=== PATIENT | female | born 1975 | race Two or more races ===

== ENCOUNTER 2016-07-19 18:46 | Inpatient (IN) | payer OTHER ==
[2016-07-19] MEDS: LACTATED RINGERS 1,000 ML IV SCH ×2 (18:15→19:30)
[~2016-07-19 18:46] MED LIST: CITRIC ACID-SODIUM CITRATE 15 ML CUP PO ONE; OXYTOCIN 10 UNIT/ML 1 ML VIAL ONE; PHENYLEPHRINE-0.9% NACL SYG 1 MG/10 ML SYRINGE ONE; PROPOFOL 10 MG/ML 20 ML VIAL IV ONE; SODIUM CHLORIDE 0.9% 1,000 ML BAG ONE; SUCCINYLCHOLINE CHLORIDE 100 MG/5 ML SYR IV ONE; ceFAZolin 1,000 MG VIAL ONE; ePHEDrine 50 MG/ML 1 ML AMP ONE
[2016-07-19 19:16] LABS: Glucose,Whole Blood 92 mg/dL (75-99)
[2016-07-19] MEDS ORDERED: HYDROmorphone 1 MG/ML 1 ML SYRINGE IVP PRN (19:32)
[2016-07-19] MEDS ORDERED: HYDROmorphone 1 MG/ML 1 ML SYRINGE ONE (19:34)
[2016-07-19 19:36] LABS: Anisocytosis Moderate; Basophils % (A) 0 %; CH 27.3; Eosinophils # (A) 0.4 k/uL (0-0.7); Eosinophils % (A) 4 %; HCT 31.9 % (34.0-46.0); HDW 2.82; HGB 10.1 gm/dL (11.4-16.0); Hypochromasia Slight; Luc # (Auto) 0.24; Luc % (Auto) 2; Lymphocytes # (A) 1.6 k/uL (1.0-4.8); Lymphocytes % (A) 16 %; MCHC 31.7 g/dL (31.0-37.0); MCV 85.3 fL (80.0-100.0); Mean Platelet Volume 7.4; Microcytosis Moderate; Monocytes # (A) 0.3 k/uL (0-1.0); Monocytes % (A) 3 %; Neutrophils # (A) 7.4 k/uL (1.3-7.7); Neutrophils % (A) 74 %; RBC 3.75 m/uL (3.80-5.40); RDW 23.9 % (11.5-15.5)
[2016-07-19] MEDS ORDERED: NALOXONE 0.4 MG/ML 1 ML VIAL IV PRN ×2 (19:40→20:35)
[2016-07-19 19:45] LABS: ALT 31 U/L (9-52); AST 23 U/L (14-36); Alkaline Phosphatase 207 U/L (38-126); Anion Gap 6 mmol/L; Blood Urea Nitrogen 10 mg/dL (7-17); Calcium 8.8 mg/dL (8.4-10.2); Carbon Dioxide 21 mmol/L (22-30); Chloride 110 mmol/L (98-107); Glucose 83 mg/dL (74-99); Non-African American GFR(MDRD) >60 (>60 ml/min/1.73 sqM); Potassium 5.2 mmol/L (3.5-5.1); Sodium 137 mmol/L (137-145); Total Bilirubin 0.3 mg/dL (0.2-1.3); Total Protein 5.8 g/dL (6.3-8.2)
--- NOTE | 2016-07-19 19:53 | P.HPOB ---
History of Present Illness H&P Date: 07/19/16 Chief Complaint: Intrauterine 30 weeks: abruption Patient is a 41-year-old at approximately 30 weeks gestation who arrives via EMS having very heavy vaginal bleeding and heart tones that were thought to be in the 70s or below. She was rushed to the operating suite where a section was performed please see that dictation separately. In speaking with the following the surgery it is noted that she has had high blood pressure with this and the bottle of medication they presented since she was taking 600 mg of labetalol every 8 hours. She's been receiving care out of the OB clinic at [facility] I have left a message for a physician to return my call so we might be able to get a little more information from them. Her past medical history is significant only for this hypertension. Past surgical history 3. ALLERGIES according to the none family history of hypertension social history he denies any social history at all no alcohol street drugs or illicit drug use or tobacco use. All information is again gathered from the as the mother at time of dictation was intubated. On physical exam please see records from the section. My ability to give any specifics to her physical exam is quite limited as she was intubated and ready for the when I arrived and she is now in the intensive care unit. Assessment intrauterine at approximately 30 weeks gestation with abruption. Plan emergency section Medications and Allergies Allergies Allergy/AdvReac Type Severity Reaction Status Date / Time No Known Allergies Allergy Verified 07/19/16 19:19 Exam Osteopathic Statement: *. No significant issues noted on an osteopathic structural exam other than those noted in the History and Physical/Consult. - Vital Signs Vital signs: Intake and Output 07/19/16 07/19/16 07/19/16 06:59 14:59 22:59 Other: Weight 82.1 kg Patient Weight 07/20/16 06:59 Weight 82.1 kg Results Result Diagrams: 07/19/16 19:20 07/19/16 19:20 Abnormal Lab Results - Last 24 Hours (Table) 07/19/16 07/19/16 Range/Units 19:20 19:20 RBC 3.75 L (3.80-5.40) m/uL Hgb 10.1 L (11.4-16.0) gm/dL Hct 31.9 L (34.0-46.0) % RDW 23.9 H (11.5-15.5) % Potassium 5.2 H (3.5-5.1) mmol/L Chloride 110 H (98-107) mmol/L Carbon Dioxide 21 L (22-30) mmol/L Alkaline Phosphatase 207 H (38-126) U/L Total Protein 5.8 L (6.3-8.2) g/dL Albumin 3.0 L (3.5-5.0) g/dL
[2016-07-19 19:55] LABS: Magnesium 1.7 mg/dL (1.6-2.3); Phosphorous 3.5 mg/dL (2.5-4.5)
[2016-07-19 20:00] LABS: Prothrombin Time 9.8 sec (9.0-12.0)
[2016-07-19 20:03] LABS: % Iron Saturation 25.6 % (20-50)
--- NOTE | 2016-07-19 20:03 | P.OP ---
Date of Procedure: 07/19/16 Preoperative Diagnosis: Uterine 30 weeks: Vaginal bleeding suspected ruptured Postoperative Diagnosis: Same Procedure(s) Performed: Repeat low transverse section Implants: Anesthesia: TESFAYE Surgeon: Pradeep Pedroza Drill Hand #1: Peg Pastor Estimated Blood Loss (ml): 3,000 Pathology: other (Placenta and fetus) Condition: critical Disposition: ICU Indications for Procedure: Massive blood loss Operative Findings: Female stillborn weight pending active resuscitation done but unsuccessful Description of Procedure: Patient was taken to the operative suite in critical condition having large quantity of blood coming from her vagina. A low transverse section was performed using her old incision line cutting down to layer of the fashion with the same knife fascia was then extended with Haney scissors and incision was extended superiorly and inferiorly with Haney scissors. Blunt dissection through the peritoneum was then made blood was noted in the abdomen incision was made on the uterus extended bluntly and head was atraumatically delivered. Nuchal cord 1 was reduced umbilical cord was clamped cut and the baby was taken immediately by special care nursery. Cord blood gases were collected. Placenta was no longer attached to the uterine wall and to greater than grapefruit sized clots were expressed from the uterus. The remainder of blood and debris was then removed from the uterus and the uterus was closed in 1 layer with 0 Vicryl suture. Due to the criticalness of the patient blood and debris was then suctioned from the posterior cul-de-sac the uterus was reinserted into the abdomen and the fascial layer was closed with 0 Vicryl suture. Skin was then closed with kaylyn and patient was then taken to the intensive care unit.
[2016-07-19 20:04] LABS: Partial Thromboplastin Time 19.8 sec (22.0-30.0)
[2016-07-19] MEDS ORDERED: HYDROmorphone PCA 5 MG/25 ML SYRINGE IV PRN (20:35)
[2016-07-19 22:23] LABS: Appearance,Urine Turbid (Clear); Bilirubin,Urine Negative (Negative); Glucose,Urine (UA) Negative (Negative); Ketones,Urine Trace (Negative); Leukocyte Esterase,Urine Moderate (Negative); Mucus,Urine Occasional /hpf; Nitrite,Urine Negative (Negative); PH, Urine 5.5 (5.0-8.0); Particle Count 54766; Protein,Urine 2+ (Negative); RBC,Urine >182 /hpf (0-5); UA Billing (MACRO vs. MICRO) MICRO; Urobilinogen,Urine <2.0 mg/dL (<2.0); WBC,Urine >182 /hpf (0-5)
[2016-07-19] MEDS ORDERED: Magnesium Replacement Protocol 1 EACH MISC MISCELLANE PRN (22:42)
[2016-07-19] MEDS: MAGNESIUM SULFATE-D5W PMX 1 GM in DEXTROSE/WATER 1 100ML.BAG IVPB SCH (22:57)
[2016-07-19] MEDS: KETOROLAC 30 MG/ML 1 ML VIAL IVP SCH (23:36)
[2016-07-20 00:12] LABS: Glucose,Whole Blood 86 mg/dL (75-99)
[2016-07-20] MEDS: MAGNESIUM SULFATE-D5W PMX 1 GM in DEXTROSE/WATER 1 100ML.BAG IVPB SCH (00:14)
[2016-07-20 00:24] LABS: Anisocytosis Marked; CH 27.6; HCT 29.1 % (34.0-46.0); HDW 2.75; HGB 9.4 gm/dL (11.4-16.0); Hypochromasia Slight; MCH 27.6 pg (25.0-35.0); MCHC 32.1 g/dL (31.0-37.0); MCV 86.1 fL (80.0-100.0); Mean Platelet Volume 7.2; Microcytosis Moderate; RBC 3.39 m/uL (3.80-5.40); RDW 24.2 % (11.5-15.5); WBC 13.9 k/uL (3.8-10.6)
[2016-07-20 00:41] LABS: Anion Gap 6 mmol/L; Blood Urea Nitrogen 11 mg/dL (7-17); Calcium 8.8 mg/dL (8.4-10.2); Carbon Dioxide 20 mmol/L (22-30); Chloride 110 mmol/L (98-107); Glucose 85 mg/dL (74-99); Non-African American GFR(MDRD) >60 (>60 ml/min/1.73 sqM); Phosphorous 4.9 mg/dL (2.5-4.5); Potassium 4.1 mmol/L (3.5-5.1); Sodium 136 mmol/L (137-145)
[2016-07-20] MEDS: DEXTROSE 5% IN WATER 1,000 ML IV SCH ×2 (01:00→08:46)
[2016-07-20 05:07] LABS: Anisocytosis Marked; Basophils % (A) 0 %; CH 27.5; CHCM 31.9; Eosinophils # (A) 0.2 k/uL (0-0.7); Eosinophils % (A) 2 %; HCT 26.2 % (34.0-46.0); HDW 2.75; HGB 8.3 gm/dL (11.4-16.0); Hypochromasia Slight; Luc # (Auto) 0.19; Luc % (Auto) 2; Lymphocytes # (A) 1.7 k/uL (1.0-4.8); Lymphocytes % (A) 18 %; MCH 27.1 pg (25.0-35.0); MCHC 31.5 g/dL (31.0-37.0); MCV 86.1 fL (80.0-100.0); Mean Platelet Volume 7.7; Microcytosis Moderate; Monocytes # (A) 0.4 k/uL (0-1.0); Monocytes % (A) 4 %; Neutrophils # (A) 7.4 k/uL (1.3-7.7); Neutrophils % (A) 74 %; RBC 3.05 m/uL (3.80-5.40); RDW 24.1 % (11.5-15.5); WBC 9.9 k/uL (3.8-10.6); WBC (Perox) 9.79
[2016-07-20 05:18] LABS: Prothrombin Time 9.9 sec (9.0-12.0)
[2016-07-20 05:19] LABS: ALT 34 U/L (9-52); AST 25 U/L (14-36); Alkaline Phosphatase 158 U/L (38-126); Anion Gap 6 mmol/L; Blood Urea Nitrogen 11 mg/dL (7-17); Calcium 8.2 mg/dL (8.4-10.2); Carbon Dioxide 22 mmol/L (22-30); Chloride 105 mmol/L (98-107); Glucose 81 mg/dL (74-99); Magnesium 2.3 mg/dL (1.6-2.3); Non-African American GFR(MDRD) >60 (>60 ml/min/1.73 sqM); Phosphorous 4.4 mg/dL (2.5-4.5); Potassium 3.9 mmol/L (3.5-5.1); Sodium 133 mmol/L (137-145); Total Bilirubin 0.1 mg/dL (0.2-1.3)
[2016-07-20] MEDS ORDERED: Potassium Replacement Protocol 1 EACH MISC MISCELLANE PRN (06:35)
[2016-07-20] MEDS: KETOROLAC 30 MG/ML 1 ML VIAL IVP SCH ×4 (06:49→23:51)
[2016-07-20] MEDS ORDERED: POTASSIUM CHLORIDE ER 20 MEQ TAB.ER PO SCH (07:00)
[2016-07-20 08:44] LABS: Glucose,Whole Blood 85 mg/dL (75-99)
--- NOTE | 2016-07-20 09:31 | P.PNOBGPC ---
Subjective - Subjective Principal diagnosis: Postop day 1 secondary to emergency Interval history: Overall is doing much better. She is still in the intensive care unit and still has a Lomeli catheter placed it should be noted that postoperatively she did have a significant amount of blood in her urine but was felt to be due to a traumatic placement and potentially the rapidity of having to go does go through the surgery. I did not think that I nicked the bladder but that was obviously a concern through the night the urine has cleared and is currently clear yellow and while pushing the bladder no clots or blood is expressed. Should we note any more blood in her urine and will definitely consult urology but at the time of the surgery with her instability it was felt more important to get her out of the surgery and to the intensive care unit for stabilization then to try and find and repair a potential bladder injury. However again during the surgery at no point I feel like we were so close to the bladder that we are risking making it. Again this morning the urine is completely clear there is no blood in the urine at all is pale yellow in color and does not have any blood or clot in it at this time. She is reporting she is very thirsty now and her pain is well-controlled with the DAIRY WORKER. She is rarely push but however and we'll likely discontinue the DAIRY WORKER today and switch her over to oral pills. Onc she is stable from an slag dumper standpoint she will likely be transferred to labor and delivery for continued observation. Due to the fact that she is not from the area and she has multiple family issues it is almost certain that she will try and go home tomorrow if she can. Please see interval documentation from the ICU physician and staff for more information on patient condition. It is however noted that her hemoglobin is 8.3 and will plan to repeat later today to verify stability. Incision does not appear to be bleeding and again there is no blood in her urine. Assessment postop day 1. Plan continue current care with likely transfer to mother-baby later today if she is maintaining her improvement : Objective - Vital Signs Latest vital signs: Vital Signs Temp Pulse Resp BP Pulse Ox 07/20/16 08:30 71 20 165/91 99 07/20/16 08:20 98.3 F 70 20 152/101 99 07/20/16 08:10 70 13 143/86 98 07/20/16 08:00 68 13 119/70 99 07/20/16 07:50 67 13 109/74 98 07/20/16 07:40 73 11 L 102/68 97 07/20/16 07:30 63 8 L 96 07/20/16 07:20 76 17 108/64 99 07/20/16 07:10 68 11 L 128/66 98 07/20/16 07:00 68 8 L 121/76 98 07/20/16 06:50 63 9 L 109/68 96 07/20/16 06:40 63 18 118/66 96 07/20/16 06:30 64 8 L 109/78 96 07/20/16 06:20 69 9 L 134/87 97 07/20/16 06:10 71 20 124/90 98 07/20/16 06:00 74 13 126/75 98 07/20/16 05:50 66 10 L 145/97 99 07/20/16 05:40 71 12 140/88 98 07/20/16 05:30 69 12 135/86 99 07/20/16 05:20 67 8 L 144/83 97 07/20/16 05:10 73 19 118/85 98 07/20/16 05:00 68 11 L 132/82 96 07/20/16 04:50 78 16 133/82 98 07/20/16 04:40 62 8 L 126/75 97 07/20/16 04:30 65 10 L 115/87 97 07/20/16 04:20 68 9 L 119/79 97 07/20/16 04:10 65 9 L 131/74 97 07/20/16 04:00 97.5 F L 66 15 121/74 98 07/20/16 03:50 63 10 L 123/74 97 07/20/16 03:40 69 8 L 117/65 97 07/20/16 03:30 70 8 L 98/61 97 07/20/16 03:20 68 13 119/71 96 07/20/16 03:10 68 9 L 123/75 97 07/20/16 03:00 64 8 L 114/62 97 07/20/16 02:50 64 19 126/81 97 07/20/16 02:40 64 18 115/75 97 07/20/16 02:30 61 17 105/75 97 07/20/16 02:20 77 19 119/78 96 07/20/16 02:10 65 17 115/70 98 07/20/16 02:00 66 18 122/72 97 07/20/16 01:50 64 19 117/82 96 07/20/16 01:40 69 17 120/76 94 L 07/20/16 01:30 62 10 L 120/84 96 07/20/16 01:20 66 16 121/76 94 L 07/20/16 01:10 63 8 L 109/71 97 07/20/16 01:00 62 10 L 127/75 96 07/20/16 00:50 64 10 L 136/84 98 07/20/16 00:40 72 14 131/79 97 07/20/16 00:30 71 28 H 145/78 98 07/20/16 00:20 67 19 139/88 99 07/20/16 00:10 69 17 139/85 98 07/20/16 00:00 98.4 F 68 21 145/87 99 07/19/16 23:50 71 15 140/93 98 07/19/16 23:40 72 26 H 151/95 100 07/19/16 23:32 71 22 156/94 100 07/19/16 23:30 73 14 156/94 100 07/19/16 23:20 77 14 162/94 100 07/19/16 23:10 75 12 139/95 99 07/19/16 23:00 72 13 136/96 100 07/19/16 22:50 75 28 H 170/105 99 07/19/16 22:40 66 10 L 154/107 100 07/19/16 22:30 63 6 L 147/85 98 07/19/16 22:20 69 13 150/88 100 07/19/16 22:10 72 29 H 153/92 99 07/19/16 22:00 72 21 159/97 99 07/19/16 21:50 66 25 H 149/92 100 07/19/16 21:40 64 15 164/101 99 07/19/16 21:30 70 17 160/98 100 07/19/16 21:20 65 11 L 161/101 99 07/19/16 21:10 65 12 164/98 100 07/19/16 21:00 67 15 159/100 100 07/19/16 20:50 67 12 154/92 100 07/19/16 20:42 100 07/19/16 20:40 67 16 144/91 100 07/19/16 20:30 67 14 161/94 99 07/19/16 20:20 73 30 H 144/89 100 07/19/16 20:10 62 16 144/94 100 07/19/16 20:00 97.1 F L 65 14 149/96 100 07/19/16 19:50 68 24 158/97 100 07/19/16 19:40 67 12 154/95 100 07/19/16 19:30 67 13 149/96 100 07/19/16 19:20 67 14 147/91 100 Intake and Output 07/19/16 07/20/16 07/20/16 22:59 06:59 14:59 Intake Total 375 2325 125 Output Total 155 503 100 Balance 220 1822 25 Intake: IV 1000 0.9 1000 Intake, IV Titration 375 1325 125 Amount Dextrose 5% in Water 1, 875 125 000 ml @ 125 mls/hr IV . Q8H [facility] Rx#:[id number] Lactated Ringers 1,000 ml 375 250 @ 125 mls/hr IV .Q8H [facility] Rx#:[id number] Magnesium Sulfate-D5w Pmx 200 1 gm In Dextrose/Water 1 100ml.bag @ 100 mls/hr IVPB Q1H [facility] Rx#: [id number] Output: Urine 155 503 100 Other: Voiding Method Indwelling Catheter Indwelling Catheter Weight 82.9 kg 84.5 kg - Labs Labs: Abnormal Lab Results - Last 24 Hours (Table) 07/19/16 07/19/16 07/19/16 Range/Units 19:20 19:20 19:20 WBC (3.8-10.6) k/uL RBC 3.75 L (3.80-5.40) m/uL Hgb 10.1 L (11.4-16.0) gm/dL Hct 31.9 L (34.0-46.0) % RDW 23.9 H (11.5-15.5) % APTT (22.0-30.0) sec D-Dimer (<0.60) mg/L FEU Sodium (137-145) mmol/L Potassium 5.2 H (3.5-5.1) mmol/L Chloride 110 H (98-107) mmol/L Carbon Dioxide 21 L (22-30) mmol/L Calcium (8.4-10.2) mg/dL Phosphorus (2.5-4.5) mg/dL Total Bilirubin (0.2-1.3) mg/dL Alkaline Phosphatase 207 H (38-126) U/L Total Protein 5.8 L (6.3-8.2) g/dL Albumin 3.0 L (3.5-5.0) g/dL Urine Appearance (Clear) Urine Protein (Negative) Urine Ketones (Negative) Urine Blood (Negative) Ur Leukocyte Esterase (Negative) Urine RBC (0-5) /hpf Urine WBC (0-5) /hpf Urine Mucus (None) /hpf Crossmatch See Detail 07/19/16 07/19/16 07/20/16 Range/Units 19:21 22:08 00:10 WBC 13.9 H (3.8-10.6) k/uL RBC 3.39 L (3.80-5.40) m/uL Hgb 9.4 L (11.4-16.0) gm/dL Hct 29.1 L (34.0-46.0) % RDW 24.2 H (11.5-15.5) % APTT 19.8 L (22.0-30.0) sec D-Dimer 8.35 H (<0.60) mg/L FEU Sodium (137-145) mmol/L Potassium (3.5-5.1) mmol/L Chloride (98-107) mmol/L Carbon Dioxide (22-30) mmol/L Calcium (8.4-10.2) mg/dL Phosphorus (2.5-4.5) mg/dL Total Bilirubin (0.2-1.3) mg/dL Alkaline Phosphatase (38-126) U/L Total Protein (6.3-8.2) g/dL Albumin (3.5-5.0) g/dL Urine Appearance Turbid H (Clear) Urine Protein 2+ H (Negative) Urine Ketones Trace H (Negative) Urine Blood Large H (Negative) Ur Leukocyte Esterase Moderate H (Negative) Urine RBC >182 H (0-5) /hpf Urine WBC >182 H (0-5) /hpf Urine Mucus Occasional H (None) /hpf Crossmatch 07/20/16 07/20/16 07/20/16 Range/Units 00:10 04:42 04:42 WBC (3.8-10.6) k/uL RBC 3.05 L (3.80-5.40) m/uL Hgb 8.3 L (11.4-16.0) gm/dL Hct 26.2 L (34.0-46.0) % RDW 24.1 H (11.5-15.5) % APTT (22.0-30.0) sec D-Dimer (<0.60) mg/L FEU Sodium 136 L 133 L (137-145) mmol/L Potassium (3.5-5.1) mmol/L Chloride 110 H (98-107) mmol/L Carbon Dioxide 20 L (22-30) mmol/L Calcium 8.2 L (8.4-10.2) mg/dL Phosphorus 4.9 H (2.5-4.5) mg/dL Total Bilirubin 0.1 L (0.2-1.3) mg/dL Alkaline Phosphatase 158 H (38-126) U/L Total Protein 5.0 L (6.3-8.2) g/dL Albumin 2.6 L (3.5-5.0) g/dL Urine Appearance (Clear) Urine Protein (Negative) Urine Ketones (Negative) Urine Blood (Negative) Ur Leukocyte Esterase (Negative) Urine RBC (0-5) /hpf Urine WBC (0-5) /hpf Urine Mucus (None) /hpf Crossmatch 07/20/16 Range/Units 04:42 WBC (3.8-10.6) k/uL RBC (3.80-5.40) m/uL Hgb (11.4-16.0) gm/dL Hct (34.0-46.0) % RDW (11.5-15.5) % APTT (22.0-30.0) sec D-Dimer 1.96 H (<0.60) mg/L FEU Sodium (137-145) mmol/L Potassium (3.5-5.1) mmol/L Chloride (98-107) mmol/L Carbon Dioxide (22-30) mmol/L Calcium (8.4-10.2) mg/dL Phosphorus (2.5-4.5) mg/dL Total Bilirubin (0.2-1.3) mg/dL Alkaline Phosphatase (38-126) U/L Total Protein (6.3-8.2) g/dL Albumin (3.5-5.0) g/dL Urine Appearance (Clear) Urine Protein (Negative) Urine Ketones (Negative) Urine Blood (Negative) Ur Leukocyte Esterase (Negative) Urine RBC (0-5) /hpf Urine WBC (0-5) /hpf Urine Mucus (None) /hpf Crossmatch
--- NOTE | 2016-07-20 13:44 | CONS ---
DATE OF CONSULTATION: 07/19/2016 REASON FOR CONSULTATION: Advice regarding anemia and other multiple medical issues requested by Dr. Pedroza. HISTORY OF PRESENT ILLNESS: This 41-year-old woman with a past medical history of hypertension, history of iron deficiency anemia, history of urinary tract infection, treated with antibiotics, history of section, PE, being followed by no primary physician in the outpatient setting was admitted after a for vaginal bleeding and the patient noticed a large quantity of blood from the vagina. The patient underwent repeat low transverse section and the patient has significant massive blood loss. The hemoglobin level is 10.1 and patient is being closely monitored at this time. The D. Dimer elevated at 8.35. There is no history of any fever, rigors or chills. No history of headache, loss of consciousness or seizures. PAST MEDICAL HISTORY: History of hypertension, history of iron deficiency anemia, history of section. Medications prior to admission include home medications are: 1. vitamins one p.o. daily. 2. Iron sulfate 325 mg daily. 3. Trandate 600 mg q.48 hours. ALLERGIES: None. FAMILY HISTORY: History of myocardial infarction. SOCIAL HISTORY: Previous history of smoking. No history of alcohol intake. REVIEW OF SYSTEMS: ENT: No diminished hearing or diminished vision. CARDIOVASCULAR: No angina or palpitations. RESPIRATORY: No cough. No hemoptysis. GI: No nausea or vomiting. : No dysuria. Nervous system: No numbness or weakness. ALLERGY/IMMUNOLOGY: No asthma or hayfever. MUSCULOSKELETAL: As mentioned earlier. HEMATOLOGY/ONCOLOGY: No history of anemia. ENDOCRINE: No history of diabetes or hypothyroidism. CONSTITUTIONAL: As mentioned earlier. DERMATOLOGY: Negative. RHEUMATOLOGY: Negative. PSYCHIATRY: As mentioned earlier. PHYSICAL EXAMINATION: The patient is alert and oriented times three. Pulse 64, blood pressure 136/84, respiratory 10, temperature normal, pulse ox 98% on room air. HEENT: Conjunctivae normal. NECK: No jugular venous distention. CARDIOVASCULAR: S1, S2 muffled. RESPIRATORY: Breath sounds diminished in the bases. No rhonchi, no crackles. ABDOMEN: Soft, nontender, status post section. LEGS: No edema. No swelling. CENTRAL NERVOUS SYSTEM: Higher functions as mentioned earlier. Moves all four limbs. No focal deficits. LYMPHATICS: No lymph nodes palpable in the neck, axillae or groin. SKIN: No ulcer, rash or bleeding. LABS: WBC 10, hemoglobin is 10.1. Otherwise, the d-dimer is 8.35. ASSESSMENT: 1. Status post repeat low transverse section. 2. Anemia secondary from uterine hemorrhage, present on admission. 3. Hypoalbuminemia. 4. Hypertension. 5. Mild hyponatremia. 6. Increased WBC. 7. History of iron deficiency anemia. 8. History of recent urinary tract infection. 9. History of three previous sections. 10. FULL CODE. RECOMMENDATIONS AND DISCUSSION: In this 41-year-old woman who presented with multiple medical issues, we will monitor the patient closely. Continue monitor the hemoglobin closely in ICU. Otherwise, repeat labs. Further recommendations to follow. Recommend to follow up with the primary physician closely in the outpatient setting. Monitor closely with FEDERAL APPELLATE CLERK. The patient had mild hyperkalemia which improved significantly. Further recommendations to follow. Doubt any current urinary tract infection at this time, we will continue to monitor. MTDD
--- NOTE | 2016-07-20 14:31 | P.CNPUL ---
History of Present Illness Consult date: 07/20/16 Requesting physician: Pradeep Pedroza Reason for consult: other (ICU management, patient presented with heavy vaginal bleeding with distress.) Chief complaint: Vaginal bleeding History of present illness: This is a 41-year-old female G6, P5, approximately at 30 weeks gestation, arrival to ER by EMS having symptoms of heavy vaginal bleeding. Patient was also noted to have heart tones to be in the 70s or below. Hence the patient was rushed immediately to the operating suite and she underwent C- section. Patient has been receiving care at OB clinic at [facility]. Patient is known to have history of hypertension, previous 3. Again the patient underwent repeat low transverse , and she was found to have a female stillborn. This was felt to be secondary to placental abruption. Postoperatively, patient was transferred to the intensive care unit , no blood transfusion was required hemoglobin presently today is 8.3. Patient was noted to be hemodynamically stable upon my evaluation, and she was in no form of distress, wondering if she could have regular diet. Hemoglobin prior to all of this was 10.1. Review of Systems 14 point review of systems were obtained, please refer to pertinent positives and negatives in the history of present illness. At the time of my evaluation, patient had no headaches no blurred vision no dizziness, no chest pain, no shortness of breath, no cough no wheezing no nausea no vomiting no abdominal pain no melena no hematemesis. Denied symptoms of urinary tract infection, did dysuria and no frequency no urgency. Past Medical History Past Medical History: Hypertension Additional Past Medical History / Comment(s): iron deficiency anemia; UTI that was treated with antibiotics History of Any Multi-Drug Resistant Organisms: None Reported Past Surgical History: Appendectomy, Section Additional Past Surgical History / Comment(s): 3 previous c sections; appy when 13 Past Anesthesia/Blood Transfusion Reactions: No Reported Reaction Past Psychological History: No Psychological Hx Reported Smoking Status: Former smoker - Past Family History Father Family Medical History: Myocardial Infarction ([place]) Additional Family Medical History / Comment(s): at 51 from [place] Mother Family Medical History: Hypertension Additional Family Medical History / Comment(s): at 69 Medications and Allergies Home Medications Medication Instructions Recorded Confirmed Type Ferrous Sulfate [Feosol] 325 mg PO DAILY 07/19/16 07/19/16 History Labetalol [Trandate] 600 mg PO Q8H 07/19/16 07/19/16 History Pnv,Calcium 72/Iron/Folic Acid 1 tab PO DAILY 07/19/16 07/19/16 History [ Plus Tablet] Allergies Allergy/AdvReac Type Severity Reaction Status Date / Time No Known Allergies Allergy Verified 07/19/16 19:19 Physical Exam Vitals: Vital Signs Temp Pulse Resp BP Pulse Ox 07/20/16 14:00 72 12 117/73 98 07/20/16 13:30 68 11 L 113/78 97 07/20/16 13:00 71 20 142/75 99 07/20/16 12:30 72 13 136/64 99 07/20/16 12:00 73 11 L 138/76 98 07/20/16 11:30 69 10 L 113/47 98 07/20/16 11:21 10 L 07/20/16 11:00 68 10 L 140/79 96 07/20/16 10:30 66 11 L 124/75 97 07/20/16 10:00 69 22 127/78 99 07/20/16 09:50 68 10 L 131/76 97 07/20/16 09:40 68 11 L 132/71 97 07/20/16 09:30 67 14 141/90 98 07/20/16 09:20 75 23 138/93 99 07/20/16 09:10 70 12 146/77 99 07/20/16 09:00 68 13 138/82 98 07/20/16 08:50 71 12 157/75 99 07/20/16 08:40 69 14 153/79 99 07/20/16 08:30 71 20 165/91 99 07/20/16 08:20 98.3 F 70 20 152/101 99 07/20/16 08:10 70 13 143/86 98 07/20/16 08:00 68 13 119/70 99 07/20/16 07:50 67 13 109/74 98 07/20/16 07:40 73 11 L 102/68 97 07/20/16 07:30 63 8 L 96 07/20/16 07:20 76 17 108/64 99 07/20/16 07:10 68 11 L 128/66 98 07/20/16 07:00 68 8 L 121/76 98 07/20/16 06:50 63 9 L 109/68 96 07/20/16 06:40 63 18 118/66 96 07/20/16 06:30 64 8 L 109/78 96 07/20/16 06:20 69 9 L 134/87 97 07/20/16 06:10 71 20 124/90 98 07/20/16 06:00 74 13 126/75 98 07/20/16 05:50 66 10 L 145/97 99 07/20/16 05:40 71 12 140/88 98 07/20/16 05:30 69 12 135/86 99 07/20/16 05:20 67 8 L 144/83 97 07/20/16 05:10 73 19 118/85 98 07/20/16 05:00 68 11 L 132/82 96 07/20/16 04:50 78 16 133/82 98 07/20/16 04:40 62 8 L 126/75 97 07/20/16 04:30 65 10 L 115/87 97 07/20/16 04:20 68 9 L 119/79 97 07/20/16 04:10 65 9 L 131/74 97 07/20/16 04:00 97.5 F L 66 15 121/74 98 07/20/16 03:50 63 10 L 123/74 97 07/20/16 03:40 69 8 L 117/65 97 07/20/16 03:30 70 8 L 98/61 97 07/20/16 03:20 68 13 119/71 96 07/20/16 03:10 68 9 L 123/75 97 07/20/16 03:00 64 8 L 114/62 97 07/20/16 02:50 64 19 126/81 97 07/20/16 02:40 64 18 115/75 97 07/20/16 02:30 61 17 105/75 97 07/20/16 02:20 77 19 119/78 96 07/20/16 02:10 65 17 115/70 98 07/20/16 02:00 66 18 122/72 97 07/20/16 01:50 64 19 117/82 96 07/20/16 01:40 69 17 120/76 94 L 07/20/16 01:30 62 10 L 120/84 96 07/20/16 01:20 66 16 121/76 94 L 07/20/16 01:10 63 8 L 109/71 97 07/20/16 01:00 62 10 L 127/75 96 07/20/16 00:50 64 10 L 136/84 98 07/20/16 00:40 72 14 131/79 97 07/20/16 00:30 71 28 H 145/78 98 07/20/16 00:20 67 19 139/88 99 07/20/16 00:10 69 17 139/85 98 07/20/16 00:00 98.4 F 68 21 145/87 99 07/19/16 23:50 71 15 140/93 98 07/19/16 23:40 72 26 H 151/95 100 07/19/16 23:32 71 22 156/94 100 07/19/16 23:30 73 14 156/94 100 07/19/16 23:20 77 14 162/94 100 07/19/16 23:10 75 12 139/95 99 07/19/16 23:00 72 13 136/96 100 07/19/16 22:50 75 28 H 170/105 99 07/19/16 22:40 66 10 L 154/107 100 07/19/16 22:30 63 6 L 147/85 98 07/19/16 22:20 69 13 150/88 100 07/19/16 22:10 72 29 H 153/92 99 07/19/16 22:00 72 21 159/97 99 07/19/16 21:50 66 25 H 149/92 100 07/19/16 21:40 64 15 164/101 99 07/19/16 21:30 70 17 160/98 100 07/19/16 21:20 65 11 L 161/101 99 07/19/16 21:10 65 12 164/98 100 07/19/16 21:00 67 15 159/100 100 07/19/16 20:50 67 12 154/92 100 07/19/16 20:42 100 07/19/16 20:40 67 16 144/91 100 07/19/16 20:30 67 14 161/94 99 07/19/16 20:20 73 30 H 144/89 100 07/19/16 20:10 62 16 144/94 100 07/19/16 20:00 97.1 F L 65 14 149/96 100 07/19/16 19:50 68 24 158/97 100 07/19/16 19:40 67 12 154/95 100 07/19/16 19:30 67 13 149/96 100 07/19/16 19:20 67 14 147/91 100 Intake and Output 07/19/16 07/20/16 07/20/16 22:59 06:59 14:59 Intake Total 375 2325 1075 Output Total 329 380 4145 Balance 220 1822 -25 Intake: IV 1000 0.9 1000 Intake, IV Titration 375 1325 875 Amount Dextrose 5% in Water 1, 875 875 000 ml @ 125 mls/hr IV . Q8H [facility] Rx#:[id number] Lactated Ringers 1,000 ml 375 250 @ 125 mls/hr IV .Q8H [facility] Rx#:[id number] Magnesium Sulfate-D5w Pmx 200 1 gm In Dextrose/Water 1 100ml.bag @ 100 mls/hr IVPB Q1H [facility] Rx#: [id number] Oral 200 Output: Urine [id number] Other: Voiding Method Indwelling Catheter Indwelling Catheter Indwelling Catheter Weight 82.9 kg 84.5 kg Physical Exam: Revealed a 41-year-old female in no distress. HEENT:[Neck is supple.] [No neck masses.] [No thyromegaly.] [No JVD.] Chest: [Clear throughout, no crackles, no rhonchi, no wheezes.] Cardiac Exam: [Normal S1 and S2, no S3 gallop, no murmur.] Abdomen: [Soft, slightly tender, no rebound, no guarding. Postsurgical. Extremities: [No clubbing, no edema, no cyanosis.] Neurological Exam: [No focal neurologic deficit.] Results - Laboratory Findings CBC and BMP: 07/20/16 04:42 07/20/16 04:42 PT/INR, D-dimer PT 9.9 sec (9.0-12.0) 07/20/16 04:42 INR 1.0 (<1.1) 07/20/16 04:42 D-Dimer 1.96 mg/L FEU (<0.60) H 07/20/16 04:42 Abnormal lab findings: Abnormal Labs 07/19/16 07/19/16 07/19/16 19:20 19:20 19:20 WBC RBC 3.75 L Hgb 10.1 L Hct 31.9 L RDW 23.9 H APTT D-Dimer Sodium Potassium 5.2 H Chloride 110 H Carbon Dioxide 21 L Calcium Phosphorus Total Bilirubin Alkaline Phosphatase 207 H Total Protein 5.8 L Albumin 3.0 L Urine Appearance Urine Protein Urine Ketones Urine Blood Ur Leukocyte Esterase Urine RBC Urine WBC Urine Mucus Crossmatch See Detail 07/19/16 07/19/16 07/20/16 19:21 22:08 00:10 WBC 13.9 H RBC 3.39 L Hgb 9.4 L Hct 29.1 L RDW 24.2 H APTT 19.8 L D-Dimer 8.35 H Sodium Potassium Chloride Carbon Dioxide Calcium Phosphorus Total Bilirubin Alkaline Phosphatase Total Protein Albumin Urine Appearance Turbid H Urine Protein 2+ H Urine Ketones Trace H Urine Blood Large H Ur Leukocyte Esterase Moderate H Urine RBC >182 H Urine WBC >182 H Urine Mucus Occasional H Crossmatch 07/20/16 07/20/16 07/20/16 00:10 04:42 04:42 WBC RBC 3.05 L Hgb 8.3 L Hct 26.2 L RDW 24.1 H APTT D-Dimer Sodium 136 L 133 L Potassium Chloride 110 H Carbon Dioxide 20 L Calcium 8.2 L Phosphorus 4.9 H Total Bilirubin 0.1 L Alkaline Phosphatase 158 H Total Protein 5.0 L Albumin 2.6 L Urine Appearance Urine Protein Urine Ketones Urine Blood Ur Leukocyte Esterase Urine RBC Urine WBC Urine Mucus Crossmatch 07/20/16 04:42 WBC RBC Hgb Hct RDW APTT D-Dimer 1.96 H Sodium Potassium Chloride Carbon Dioxide Calcium Phosphorus Total Bilirubin Alkaline Phosphatase Total Protein Albumin Urine Appearance Urine Protein Urine Ketones Urine Blood Ur Leukocyte Esterase Urine RBC Urine WBC Urine Mucus Crossmatch Assessment and Plan Plan: Impression: 1 acute placental abruption requiring emergency , postoperative day #1. 2 anemia secondary to blood loss related to placental abruption and . 3 history of hypertension during patient was treated with labetalol. Recommendation: Continue present supportive care measures, monitor in the ICU for the next few hours, repeat hemoglobin, consider transferring the patient back to [facility] floor. We'll continue to follow as long as the patient is in the intensive care unit. Time with Patient: Greater than 30
[2016-07-20] MEDS: Acetaminophen-Codeine 300-30mg TAB PO PRN ×2 (16:33→21:41)
--- NOTE | 2016-07-20 18:58 | PN ---
DATE OF SERVICE: 07/20/2016 This 41-year-old woman who was admitted after repeat low transverse section also had anemia. The patient is being monitoring in the ICU. No chest pain. No palpitation. No fever. Hemoglobin 8.3. On exam, alert and oriented pulse 72, blood pressure 117/73, respiration 12, temperature normal. Pulse ox 98% on room air. HEENT: Conjunctivae pale. Oral mucosa moist. NECK: No jugular venous distention. No carotid bruit. CARDIOVASCULAR SYSTEM: S1, S2 muffled. RESPIRATORY SYSTEM: Breath sounds diminished at the bases. No rhonchi. No crackles. ABDOMEN: Soft, status post surgery. LEGS: No edema. No swelling. NERVOUS SYSTEM: No focal deficit. LABS: D-dimer 1.96. Hemoglobin 8.3. Sodium 133. Albumin is 2.6. ASSESSMENT: 1. Status post repeat low transverse section. 2. Anemia secondary to uterine hemorrhage, present on admission. 3. Hypoalbuminemia. 4. Hypertension. 5. Mild hyponatremia. 6. Increased white count. 7. History of iron deficiency anemia. 8. History of recent urinary tract infection. 9. History of 3 previous sections. 10. FULL CODE. RECOMMENDATIONS AND DISCUSSION: I recommend to continue with the current medications, continue with the monitoring, symptomatic treatment. Otherwise, at this time I would recommend oral iron. Continue to monitor. If the hemoglobin is less than 7, transfusion may be arranged. Will follow the patient closely. Thank you, Dr. Pedroza. [facility]
[2016-07-20] MEDS ORDERED: HYDROmorphone 1 MG/ML 1 ML SYRINGE IVP STA (19:07)
[2016-07-21] MEDS: Acetaminophen-Codeine 300-30mg TAB PO PRN ×3 (04:16→23:13)
[2016-07-21] MEDS: KETOROLAC 30 MG/ML 1 ML VIAL IVP SCH (06:30)
[2016-07-21 08:32] LABS: Anisocytosis Moderate; Basophils % (A) 0 %; CH 27.7; CHCM 31.9; Eosinophils # (A) 0.2 k/uL (0-0.7); Eosinophils % (A) 2 %; HCT 31.1 % (34.0-46.0); HDW 2.78; HGB 10.1 gm/dL (11.4-16.0); Hypochromasia Slight; Luc # (Auto) 0.17; Luc % (Auto) 1; Lymphocytes # (A) 1.2 k/uL (1.0-4.8); Lymphocytes % (A) 9 %; MCHC 32.3 g/dL (31.0-37.0); MCV 86.7 fL (80.0-100.0); Mean Platelet Volume 7.1; Microcytosis Moderate; Monocytes # (A) 0.3 k/uL (0-1.0); Monocytes % (A) 3 %; Neutrophils % (A) 85 %; RBC 3.59 m/uL (3.80-5.40); RDW 23.9 % (11.5-15.5); WBC 12.9 k/uL (3.8-10.6); WBC (Perox) 13.07
[2016-07-21 08:44] LABS: INR 0.9 (<1.1); Prothrombin Time 9.3 sec (9.0-12.0)
[2016-07-21 08:53] LABS: Partial Thromboplastin Time 21.1 sec (22.0-30.0)
[2016-07-21 08:54] LABS: Calcium 8.9 mg/dL (8.4-10.2); Magnesium 2.2 mg/dL (1.6-2.3); Phosphorous 4.9 mg/dL (2.5-4.5); Potassium 5.9 mmol/L (3.5-5.1); Total Bilirubin 0.4 mg/dL (0.2-1.3); Total Protein 6.4 g/dL (6.3-8.2)
[2016-07-21] MEDS ORDERED: SODIUM POLYSTYRENE SULFONATE 30 GM/120 ML BOTTLE RECTAL STA (09:59)
[2016-07-21] MEDS ORDERED: INSULIN REGULAR 100 UNIT/ML VIAL IV ONE (10:00)
[2016-07-21] MEDS ORDERED: CALCIUM GLUCONATE 1,000 MG in SODIUM CHLORIDE 0.9% 100 ML IVPB ONE (10:01)
[2016-07-21] MEDS ORDERED: DEXTROSE 50%-WATER 50 ML SYRINGE IVP STA ×2 (10:01)
[2016-07-21] MEDS ORDERED: SODIUM BICARB 8.4% 50 ML SYR (1 MEQ/ML) IV ONE (10:30)
[2016-07-21] MEDS ORDERED: Acetaminophen-Codeine 300-30mg TAB PO STA (11:20)
[2016-07-21 11:33] LABS: Appearance,Urine Cloudy (Clear); Bacteria,Urine Rare /hpf; Bilirubin,Urine Negative (Negative); Calcium Oxalate Crystals,Urine Few /hpf; Glucose,Urine (UA) Negative (Negative); Ketones,Urine Negative (Negative); Leukocyte Esterase,Urine Small (Negative); Mucus,Urine Rare /hpf; Nitrite,Urine Negative (Negative); Particle Count 4817; Protein,Urine Negative (Negative); RBC,Urine 1 /hpf (0-5); Squamous Epithelial Cell,Urine 1 /hpf (0-4); UA Billing (MACRO vs. MICRO) MICRO; Urobilinogen,Urine <2.0 mg/dL (<2.0); WBC,Urine 2 /hpf (0-5)
[2016-07-21] MEDS: oxyCODONE-APAP 7.5-325MG 1 EACH TAB PO PRN ×2 (12:05→15:47)
[2016-07-21] MEDS: SODIUM CHLORIDE 0.9% 1,000 ML IV SCH ×2 (12:49→18:03)
--- NOTE | 2016-07-21 13:29 | CDI ---
In responding to this query, please exercise your independent professional judgment. The [facility] Coding Staff and Clinical Documentation Specialists appreciate your assistance in clarifying documentation, maintaining compliance with coding guidelines, accurately documenting patients condition and capturing severity of illness. The fact that a question is asked does not imply that any particular answer is desired or expected. Communication forms are a method of clarifying documentation and are not made part of the Legal Health Record. Thank you in advance for your clarification. Last Revision, December 2014 [place] [address] [place] [address] Documentation Clarification Form Date: 07/21/2016 1:16:00 PM From: Jordana Pawel Admit Date: 07/19/2016 6:49:00 PM Patient Name: Kaylyn Durham Visit Number: [id number] Discharge Date: Dr. Juanita Saha A diagnosis of anemia lacks specificity to accurately reflect your patients severity of condition and clarification is needed. Patient history/risk factors: Hypertension, Iron deficiency anemia, Cersarean section x3 Clinical Indicators: Intrauterine at 30 weeks, complains of heavy vaginal bleeding. She had an emergency . Hemoglobin: 10.1, 9.4, 8.3 Hematocrit: 31.9, 29.1 26.2 Treatment: Monitor Labs Niferex-150 Forte PO In order to capture the severity of condition, please clarify the type of anemia and etiology if known: Acute blood loss anemia Acute on chronic blood loss anemia Chronic blood loss anemia Iron deficiency anemia Unable to determine Other, please specify Please document in your progress notes order to capture severity of illness and risk of mortality. Include clinical findings that support your diagnosis. FYI: Press F11 to launch patient chart. Place X here if this finding has no clinical significance, is not applicable or if you are not able to provide any additional documentation. MOIZD
[2016-07-21] MEDS ORDERED: SODIUM POLYSTYRENE SULFONATE 15 GM/60 ML BOTTLE PO STA (13:39)
[2016-07-21] MEDS: IRON PS CMPLX/VIT B12/FA 1 EACH CAP PO SCH (13:50)
--- NOTE | 2016-07-21 14:30 | XR ---
EXAMINATION TYPE: XR abdomen 2V DATE OF EXAM: 07/21/2016 COMPARISON: NONE INDICATION: Abdomen pain, dysuria TECHNIQUE: Abdomen examined in the supine and upright views. FINDINGS: There are prominent small bowel loops containing air. These appear dilated. Small amount of colonic b owel but gas is in the ascending colon region. Postsurgical skin clips are at the lower pelvis. Psoas margins are normal. No organomegaly is present. No suspicious air-fluid levels or differential air-fluid levels are present. Free air is not evident. IMPRESSION: 1. Dilated small bowel loops can be postoperative ileus. Early obstruction is not excluded. Follow-up is recommended
--- NOTE | 2016-07-21 15:13 | US ---
EXAMINATION TYPE: US renals and bladder DATE OF EXAM: 07/21/2016 COMPARISON: NONE CLINICAL HISTORY: dysuria, pain, renal failure. Patient post emergency 2 days prior, not producing urine, unable to void. EXAM MEASUREMENTS: Right Kidney: 10.8 x 4.5 x 4.5 cm Left Kidney: 10.9 x 5.6 x 4.6 cm Right Kidney: ff surrounding kidney in Morrisons pouch and surrounding liver Left Kidney: ff left, possible left pleural effusion Bladder: appears wnl FF surrounding uterus and to the lateral left of uterus and lateral right of uterus Bilateral Jets seen: yes Normal Post Void Residual: pt unable to void There is no evidence for hydronephrosis. No nephrolithiasis is seen. No masses are identified. The urinary bladder is anechoic. Bilateral ureteral jets are seen. IMPRESSION: 1. NEGATIVE FOR OBSTRUCTIVE UROPATHY. 2. SMALL VOLUME SIMPLE-APPEARING FREE-FLOWING PERITONEAL FLUID NOTED.
[2016-07-21 15:19] LABS: Calcium 8.7 mg/dL (8.4-10.2); Potassium 4.9 mmol/L (3.5-5.1)
[2016-07-21] MEDS ORDERED: MORPHINE SULFATE 2 MG/ML SYRINGE ONE (16:31)
[2016-07-21] MEDS ORDERED: MORPHINE SULFATE 4 MG/ML SYRINGE IVP PRN (16:47)
--- NOTE | 2016-07-21 17:51 | PN ---
Patient is a very pleasant 41-year-old female admitted for ruptured placenta and a stillborn baby and patient is complaining of abdominal pain, diffuse sharp in nature, radiating all over the abdomen from left to the right. Patient we obtained an ultrasound appears to have some ileus. Patient is on clear liquid diet. Patient abdomen is distended. No rebound or rigidity. Patient will be continued on IV fluids. Patient may need to be n.p.o. if she continues to have this abdominal pain to give her bowels rest because of the ileus, most probably postoperative ileus and patient had a low transverse section. Patient is aneuric at this point of time with worsening creatinine and elevated potassium. Patient was treated with calcium gluconate and Kayexelate for elevated potassium. Patient is hyponatremic as well. I am opting ultrasound of the kidney along with urine random sodium, urine eosinophils and BUN and creatinine ratio is consistent actually with post renal causes. Does not appear to have prerenal azotemia. Anyways, we will continue with IV fluids. Patient remains anuric at this point of time. Ultrasound of the kidney will be obtained as well. REVIEW OF SYSTEMS: CONSTITUTIONAL: No fever, no malaise, no fatigue. HEENT: No recent visual problems or hearing problems. Denied any sore throat. CARDIOVASCULAR: No chest pain, orthopnea, PND, no palpitations, no syncope. PULMONARY: No shortness of breath, no cough, no hemoptysis. GASTROINTESTINAL: as described in HPI. NEUROLOGICAL: No headaches, no weakness, no numbness. HEMATOLOGICAL: Denies any bleeding or petechiae. GENITOURINARY: Denies any burning micturition, frequency, or urgency. MUSCULOSKELETAL/RHEUMATOLOGICAL: Denies any joint pain, swelling, or any muscle pain. ENDOCRINE: Denies any polyuria or polydipsia. The rest of the 14 point review of systems is negative. Medications were reviewed. Patient started in spite of her years, patient was started on narcotics for pain to avoiding any kind of NSAIDS at this point of time. PHYSICAL EXAMINATION: Temperature 98.5, pulse of 72, respiratory rate of 18, blood pressure 170/73, saturating at 99%. GENERAL: The patient is alert and oriented x3, not in any acute distress. Well developed, well nourished. HEENT: Pupils are round and equally reacting to light. EOMI. No scleral icterus. No conjunctival pallor. Normocephalic, atraumatic. No pharyngeal erythema. No thyromegaly. CARDIOVASCULAR: S1 and S2 present. No murmurs, rubs, or gallops. PULMONARY: Chest is clear to auscultation, no wheezing or crackles. ABDOMEN: Patient has sluggish bowel sounds. Patient does have bowel sounds. Patient's abdomen is distended, tympanic without any rebound or rigidity. MUSCULOSKELETAL: No joint swelling or deformity. EXTREMITIES: No cyanosis, clubbing, or pedal edema. NEUROLOGICAL: Gross neurological examination did not reveal any focal deficits. SKIN: No rashes. LABORATORY DATA: CBC, CMP are abnormal for elevated WBC count of 12,900, sodium of 131, potassium of 5.9, bicarbonate of 20, creatinine is 1.63. Her creatinine yesterday was 0.70. ASSESSMENT AND PLAN: 1. Acute renal failure possible renal versus post renal causes. Further evaluation as mentioned in the interval history. 2. ( ) status post section, that aspect is being managed by [facility] services. 3. Leukocytosis secondary to reactive response post section. 4. Possible postoperative ileus. Management as mentioned above. 5. Hyponatremia can be hypovolemic hyponatremia, will further evaluate with a TSH and starting with TSH. If it does not resolve with IV fluids, patient will need further evaluation with urine serum osmolarity as urine random sodium is being obtained at this point of time. 6. Can be syndrome of inappropriate antidiuretic hormone from pain as well. 7. Hypertension post . At this point of time, patient's blood pressure is not very high. Patient will need good renal perfusion because of which antihypertensives will be discontinued. We will discontinue all p.r.n. antihypertensives as well. 8. Hyperkalemia secondary to acute renal failure expected to improve with above-mentioned measures.
--- NOTE | 2016-07-21 17:53 | FL ---
History bladder laceration. The initial image shows Lomeli catheter in urinary bladder. There is a small amount of contrast in the bladder. There are skin kaylyn. The contrast was instilled into the urinary bladder. This was Cystografin 225 mL. There is contrast o pacification of the urinary bladder that has fairly normal contour. There is abnormal contrast extrav asation into the pelvis on the left side. The remainder of exam is unremarkable. CONCLUSION: The exam shows bladder laceration or leak with contrast extravasation into the pelvis on the left debra e.
--- NOTE | 2016-07-21 19:28 | P.GSCN ---
History of Present Illness Consult date: 07/21/16 Reason for Consult: Bladder laceration Requesting physician: Pradeep Pedroza History of present illness: The patient is a 41-year-old white female, 30 weeks , brought to [facility] via EMS on 07/19/2016 with heavy vaginal bleeding and low heart tones. She underwent emergency section. Postoperatively, she was noted to have gross hematuria but this cleared. The Lomeli catheter was out today, and the patient developed hematuria and difficulty voiding. A cystogram was obtained, revealing contrast extravasation on the left side. I'm consulted for this reason. A Lomeli catheter is currently in place. The patient has an unremarkable urologic history. She has been treated for UTIs throughout this . However, she denies any prior history of UTIs or urolithiasis. Review of Systems - Genitourinary Genitourinary: Reports dysuria, Reports hematuria Menstruation: Reports as per HPI Past Medical History Past Medical History: Hypertension Additional Past Medical History / Comment(s): iron deficiency anemia; UTI that was treated with antibiotics History of Any Multi-Drug Resistant Organisms: None Reported Past Surgical History: Appendectomy, Section Additional Past Surgical History / Comment(s): 3 previous c sections; appy when 13 Past Anesthesia/Blood Transfusion Reactions: No Reported Reaction Past Psychological History: No Psychological Hx Reported Smoking Status: Former smoker - Past Family History Father Family Medical History: Myocardial Infarction (CT) Additional Family Medical History / Comment(s): at [address] Mother Family Medical History: Hypertension Additional Family Medical History / Comment(s): at 69 Medications and Allergies Home Medications Medication Instructions Recorded Confirmed Type Ferrous Sulfate [Feosol] 325 mg PO DAILY 07/19/16 07/19/16 History Labetalol [Trandate] 600 mg PO Q8H 07/19/16 07/19/16 History Pnv,Calcium 72/Iron/Folic Acid 1 tab PO DAILY 07/19/16 07/19/16 History [ Plus Tablet] Allergies Allergy/AdvReac Type Severity Reaction Status Date / Time No Known Allergies Allergy Verified 07/19/16 19:19 Surgical - Exam Vital Signs Temp Pulse Resp BP Pulse Ox 98.4 F 71 16 122/78 97 07/19/16 16:00 07/19/16 16:00 07/19/16 16:00 07/19/16 16:00 07/19/16 16:00 - General well developed, well nourished, moderate distress - Respiratory normal respiratory effort - Abdomen Soft, tender to palpation, no rebound. The Pfannenstiel incision is clean. Results - Labs 07/21/16 08:05 07/21/16 14:58 Abnormal Lab Results - Last 24 Hours (Table) 07/19/16 07/21/16 07/21/16 Range/Units 19:20 08:05 08:05 WBC 12.9 H (3.8-10.6) k/uL RBC 3.59 L (3.80-5.40) m/uL Hgb 10.1 L (11.4-16.0) gm/dL Hct 31.1 L (34.0-46.0) % RDW 23.9 H (11.5-15.5) % Neutrophils # 11.0 H (1.3-7.7) k/uL APTT 21.1 L (22.0-30.0) sec Sodium (137-145) mmol/L Potassium (3.5-5.1) mmol/L Carbon Dioxide (22-30) mmol/L Creatinine (0.52-1.04) mg/dL Glucose (74-99) mg/dL Phosphorus (2.5-4.5) mg/dL Alkaline Phosphatase (38-126) U/L Albumin (3.5-5.0) g/dL Urine Appearance (Clear) Urine Blood (Negative) Ur Leukocyte Esterase (Negative) Calcium Oxalate Crystal (None) /hpf Urine Bacteria (None) /hpf Urine Mucus (None) /hpf Ur Random Sodium (30-90) mmol/L Crossmatch See Detail 07/21/16 07/21/16 07/21/16 Range/Units 08:05 10:00 10:00 WBC (3.8-10.6) k/uL RBC (3.80-5.40) m/uL Hgb (11.4-16.0) gm/dL Hct (34.0-46.0) % RDW (11.5-15.5) % Neutrophils # (1.3-7.7) k/uL APTT (22.0-30.0) sec Sodium 131 L (137-145) mmol/L Potassium 5.9 H (3.5-5.1) mmol/L Carbon Dioxide 20 L (22-30) mmol/L Creatinine 1.63 H (0.52-1.04) mg/dL Glucose (74-99) mg/dL Phosphorus 4.9 H (2.5-4.5) mg/dL Alkaline Phosphatase 182 H (38-126) U/L Albumin 3.4 L (3.5-5.0) g/dL Urine Appearance Cloudy H (Clear) Urine Blood Moderate H (Negative) Ur Leukocyte Esterase Small H (Negative) Calcium Oxalate Crystal Few H (None) /hpf Urine Bacteria Rare H (None) /hpf Urine Mucus Rare H (None) /hpf Ur Random Sodium 28 L (30-90) mmol/L Crossmatch 07/21/16 Range/Units 14:58 WBC (3.8-10.6) k/uL RBC (3.80-5.40) m/uL Hgb (11.4-16.0) gm/dL Hct (34.0-46.0) % RDW (11.5-15.5) % Neutrophils # (1.3-7.7) k/uL APTT (22.0-30.0) sec Sodium 129 L (137-145) mmol/L Potassium (3.5-5.1) mmol/L Carbon Dioxide 19 L (22-30) mmol/L Creatinine 2.23 H (0.52-1.04) mg/dL Glucose 107 H (74-99) mg/dL Phosphorus (2.5-4.5) mg/dL Alkaline Phosphatase (38-126) U/L Albumin (3.5-5.0) g/dL Urine Appearance (Clear) Urine Blood (Negative) Ur Leukocyte Esterase (Negative) Calcium Oxalate Crystal (None) /hpf Urine Bacteria (None) /hpf Urine Mucus (None) /hpf Ur Random Sodium (30-90) mmol/L Crossmatch Microbiology - Last 24 Hours (Table) 07/21/16 10:00 Urine Culture - Preliminary Urine,Catheterized 07/19/16 22:08 Urine Culture - Final Urine,Catheterized Diabetes panel 07/21/16 07/21/16 Range/Units 08:05 14:58 Sodium 131 L 129 L (137-145) mmol/L Potassium 5.9 H 4.9 (3.5-5.1) mmol/L Chloride 103 100 (98-107) mmol/L Carbon Dioxide 20 L 19 L (22-30) mmol/L BUN 14 16 (7-17) mg/dL Creatinine 1.63 H 2.23 H (0.52-1.04) mg/dL Glucose 99 107 H (74-99) mg/dL Calcium 8.9 8.7 (8.4-10.2) mg/dL AST 33 (14-36) U/L ALT 42 (9-52) U/L Alkaline Phosphatase 182 H (38-126) U/L Total Protein 6.4 (6.3-8.2) g/dL Albumin 3.4 L (3.5-5.0) g/dL Calcium panel 07/21/16 07/21/16 Range/Units 08:05 14:58 Calcium 8.9 8.7 (8.4-10.2) mg/dL Phosphorus 4.9 H (2.5-4.5) mg/dL Albumin 3.4 L (3.5-5.0) g/dL Pituitary panel 07/21/16 07/21/16 Range/Units 08:05 14:58 Sodium 131 L 129 L (137-145) mmol/L Potassium 5.9 H 4.9 (3.5-5.1) mmol/L Chloride 103 100 (98-107) mmol/L Carbon Dioxide 20 L 19 L (22-30) mmol/L BUN 14 16 (7-17) mg/dL Creatinine 1.63 H 2.23 H (0.52-1.04) mg/dL Glucose 99 107 H (74-99) mg/dL Calcium 8.9 8.7 (8.4-10.2) mg/dL Adrenal panel 07/21/16 07/21/16 Range/Units 08:05 14:58 Sodium 131 L 129 L (137-145) mmol/L Potassium 5.9 H 4.9 (3.5-5.1) mmol/L Chloride 103 100 (98-107) mmol/L Carbon Dioxide 20 L 19 L (22-30) mmol/L BUN 14 16 (7-17) mg/dL Creatinine 1.63 H 2.23 H (0.52-1.04) mg/dL Glucose 99 107 H (74-99) mg/dL Calcium 8.9 8.7 (8.4-10.2) mg/dL Total Bilirubin 0.4 (0.2-1.3) mg/dL AST 33 (14-36) U/L ALT 42 (9-52) U/L Alkaline Phosphatase 182 H (38-126) U/L Total Protein 6.4 (6.3-8.2) g/dL Albumin 3.4 L (3.5-5.0) g/dL Assessment and Plan (1) Bladder laceration as postoperative complication Status: Acute Plan: I reviewed the cystogram, which reveals extravasation of contrast to the left of the midline. I had a lengthy discussion with the patient and her . I explained that the findings are consistent with a bladder laceration, and I have recommended that this be surgically repaired. The rationale for this was discussed, and the procedure was reviewed in detail. Potential risks include anesthesia, bleeding, infection, bowel injury, persistent leak, and vesicovaginal fistula. I explained the need for a Lomeli catheter postoperatively. I intend to pass a ureteral catheter up each ureter to exclude ureteral injury, though this is not suspected. I intend to perform this procedure tomorrow. All questions were answered. Time with Patient: Greater than 30
[2016-07-21] MEDS ORDERED: BUTORPHANOL 1 MG/ML 1 ML VIAL IV PRN (19:38)
--- NOTE | 2016-07-21 19:46 | P.PN ---
Progress Note - Text Patient seen and evaluated on several occasions today. Following removal of her Lomeli catheter yesterday she began having significant abdominal pain and decreasing urine output. Due to this when I was notified this morning I did try and order an merchant ultrasound to try and verify patency of the bladder. However due to her uncontrolled blood pressures she was held from having the ultrasound until they were able to better manage her medication. Early this afternoon she did have an ultrasound which revealed fluid in the abdomen and pelvis. I did speak with the urologist myself and we obtained a cystogram revealing extravasation from what appears to be a small hole in the bladder. In speaking with her tonight the plan is to have an exploratory surgery tomorrow to repair the laceration. Risks and benefits of the surgery were discussed with the patient in detail by Dr. Alvarez. Her vital signs continued to show significant hypertension. She is complaining of worsening of pain this evening and: Reinsertion of Lomeli catheter there is now hematuria again. Yesterday the decision to remove the Lomeli catheter was made by my partner. At that time there was no gross hematuria urine was clear yellow the patient was actually feeling very well she had been up ambulating and was voicing no concerns or complaints at that time. I had a lengthy discussion with both she and her there concerned about obviously the laceration and its ability to repair there were concerned about trying to figure out why this happened during the surgery did again reiterate due to the emergency nature of the section and the speed with which we're trying to do the surgery on occasion you can have bladder lacerations I also did remind her that she had had 3 previous sections and this certainly could play a role in her having a laceration. The more importantly we discussed that had this been a scheduled section were she was not in a critical condition and our concerns over her blood pressure and our concern that she may not make it out of the surgery precluded us from doing any further examination for possible laceration at that time. We'll plan to assist Dr. Landaverde with the surgery tomorrow. She is requesting an increase in pain medication will switch her over to Stadol 1 mg IV every 2 for severe breakthrough pain. She'll be made nothing by mouth after midnight tonight with expectation that late morning early in the afternoon she will undergo the surgery. Please see Dr. Alvarez's dicauscultation dictation regarding medical treatment of her blood pressure and hyperkalemia and suspected acute renal failure Weisser incision is clean dry and intact.
[2016-07-21] MEDS ORDERED: ceFAZolin 1 GM in SODIUM CHLORIDE 0.9% 100 ML IVPB SCH (20:00)
[2016-07-21] MEDS ORDERED: ceFAZolin 1,000 MG in DEXTROSE/WATER 1 50ML.BAG IVPB SCH (20:00)
[2016-07-21] MEDS ORDERED: LABETALOL 100 MG TAB PO PRN (23:26)
[2016-07-21 23:42] LABS: Anisocytosis Marked; CH 27.9; HCT 32.9 % (34.0-46.0); HDW 2.76; HGB 10.5 gm/dL (11.4-16.0); Hypochromasia Slight; Immature Gran Flag Marked; MCH 27.8 pg (25.0-35.0); MCV 86.9 fL (80.0-100.0); Mean Platelet Volume 6.7; Microcytosis Moderate; RBC 3.79 m/uL (3.80-5.40); RDW 24.1 % (11.5-15.5); WBC 8.3 k/uL (3.8-10.6); WBC (Perox) 8.92
[2016-07-22] LABS: ABG HCO3 17 mmol/L (21-25); ABG PCO2 22 mmHg (35-45); ABG PH 7.51 (7.35-7.45); ABG PO2 88 mmHg (83-108); ABG TCO2 18 mmol/L (19-24)
[2016-07-22 00:01] LABS: ABG Base Excess -5.7 mmol/L
[2016-07-22 00:05] LABS: Calcium 8.4 mg/dL (8.4-10.2); Potassium 4.4 mmol/L (3.5-5.1); Total Bilirubin 0.3 mg/dL (0.2-1.3); Total Protein 5.8 g/dL (6.3-8.2)
[2016-07-22 00:48] LABS: Add Differential Manual Differential
[2016-07-22 00:57] LABS: Nucleated Red Blood Cells 0 /100 WBC (0-0); Total Cells Counted 200
[2016-07-22 00:58] LABS: Polychromasia Present
[2016-07-22 00:59] LABS: Toxic Vacuolation Present
[2016-07-22] MEDS: HYDROmorphone 1 MG/ML 1 ML SYRINGE IVP PRN ×5 (01:40→22:06)
--- NOTE | 2016-07-22 02:24 | CT ---
Exam: CT ABDOMEN + PELVIS without Contrast History: Possible postoperative ileus. Unable to urinate. Rigid and painful distended abdomen. Comparison: None provided. Technique: Continuous axial images of the abdomen and pelvis are obtained without intravenous contrast. Coronal and sagittal reformatting was provided. Findings: Detailed evaluation is limited by a lack of intravenous and/or enteric contrast. Further limited by beam hardening artifact from overlying upper extremities. Trace bilateral pleural effusions with minimal bibasilar atelectasis. There are scattered pockets of fluid throughout the abdomen and pelvis. Cursory measurements reveal predominantly simple fluid attenuation in these pockets of fluid. It is nonspecific. It may be related to recent surgery. Presumably, surgery was a given subcutaneous stranding/edema and soft tissue emphysema with surgical kaylyn in the pelvis. There is also an enlarged uterus. A portion of the free fluid at the pelvic floor is somewhat confluent. No definite abscess formation at this time though sensitivity is limited by lack of intravenous contrast. Multiple extraluminal gas bubbles are seen throughout the abdomen and pelvis. The vast majority of these are in the lower abdomen/pelvis. These are probably post operative in nature. The possibility of a bowel perforation is considered unlikely, but not ruled out. There is a large amount of gas throughout the colon. Segments of the ascending and transverse colon are prominent, measuring almost 7.5 cm in caliber. However, these are not frankly dilated by CT size criteria. It probably represents a postoperative ileus. There is transition to decompressed caliber at the level of the descending colon. The unenhanced liver, spleen, adrenal glands, right kidney, and pancreas show no substantial abnormality. Questionable punctate nonobstructing stone at the lower pole of the left kidney suggestion of layering sludge in the gallbladder. Appendix not seen with certainty. Urinary bladder is decompressed by Lomeli catheter and not well evaluated. The aorta is not dilated. No bulky lymphadenopathy though sensitivity is limited by lack of intravenous contrast. No aggressive appearing osseous process. Impression: 1. Moderate amount of free fluid and mild amount of free gas as discussed. Presumably, these are postoperative changes as discussed above. 2. Probable postoperative colonic ileus. CTDI vol = 21.70 mGy DLP = 1146.20 mGycm One or more of the following dose reduction techniques were used: automated exposure control, adjustment of the mA and/or kV according to patient size, use of iterative reconstruction technique.
--- NOTE | 2016-07-22 02:35 | P.PN ---
Progress Note - Text was called to evaluate the patient earlier this morning due to intractable pain. Over the last few hours patient's pain level has significantly increased and in a sitting position and the pain was virtually unbearable. Abdomen on evaluation is now firm she does have bowel sounds but appears to be distended. Discussion on whether this was fluid from her bladder or an ileus was made and due to concerns over ileus a CAT scan was ordered by her hospitalist physician. CT reveals suspected colonic ileus. Obviously making matters worsened the situation she is on narcotics for pain relief which are the only thing that seemed to be controlling her pain better certainly going to make the ileus worse. Will consult Dr. Lance for surgical evaluation possible medication use or even potentially rectal tube should this prove necessary. At this time she is not throwing up she has minimal nausea and after her last dose of IV pain medicine is much more comfortable. With her laying at a low angle supine position her breathing is much better and her pain is much better. I did speak with both she and her and they seemed to understand what her current pain situation is but unfortunately until we're able to take her to surgery to repair at the bladder and/or have her start passing flatus and don't think that her pain is gotten dramatically improved but as I stated earlier will have surgery consult and see if they can offer any other recommendations.
[2016-07-22] MEDS: PIPERACILLIN-TAZOBACTAM 3.375 GM in DEXTROSE/WATER 1 50ML.BAG IVPB SCH ×5 (03:10→23:48)
[2016-07-22] MEDS ORDERED: ACETAMINOPHEN IV (For NPO) 1,000 MG in EMPTY BAG 1 BAG IVPB PRN (03:16)
[2016-07-22] MEDS: SODIUM CHLORIDE 0.9% 1,000 ML IV SCH ×3 (04:05→18:21)
[2016-07-22 05:34] LABS: Anisocytosis Marked; CH 28.3; CHCM 33.7; HCT 28.6 % (34.0-46.0); HDW 2.91; HGB 9.4 gm/dL (11.4-16.0); Immature Gran Flag Slight; MCH 27.7 pg (25.0-35.0); MCV 83.9 fL (80.0-100.0); Mean Platelet Volume 7.4; Microcytosis Moderate; RBC 3.41 m/uL (3.80-5.40); WBC 12.8 k/uL (3.8-10.6); WBC (Perox) 13.67
[2016-07-22 05:50] LABS: ALT 31 U/L (9-52); AST 21 U/L (14-36); Alkaline Phosphatase 128 U/L (38-126); Anion Gap 8 mmol/L; Blood Urea Nitrogen 13 mg/dL (7-17); Calcium 7.6 mg/dL (8.4-10.2); Carbon Dioxide 20 mmol/L (22-30); Chloride 103 mmol/L (98-107); Glucose 99 mg/dL (74-99); Magnesium 1.7 mg/dL (1.6-2.3); Non-African American GFR(MDRD) 50 (>60 ml/min/1.73 sqM); Phosphorous 5.2 mg/dL (2.5-4.5); Potassium 4.8 mmol/L (3.5-5.1); Sodium 131 mmol/L (137-145); Total Bilirubin 0.6 mg/dL (0.2-1.3); Total Protein 5.4 g/dL (6.3-8.2)
[2016-07-22 05:51] LABS: Partial Thromboplastin Time 22.8 sec (22.0-30.0); Prothrombin Time 9.8 sec (9.0-12.0)
[2016-07-22 07:26] LABS: Add Differential Manual Differential
[2016-07-22 07:32] LABS: Band Neutrophils % 47.5 %; Metamyelocytes % 0.5 %; Nucleated Red Blood Cells 0 /100 WBC (0-0); Total Cells Counted 200
[2016-07-22 07:33] LABS: Polychromasia Present
[2016-07-22 07:35] LABS: Toxic Vacuolation Present
[2016-07-22] MEDS ORDERED: LACTATED RINGERS 1,000 ML IV ONE ×2 (11:50→13:48)
[2016-07-22] MEDS ORDERED: LIDOCAINE 1% 20 ML VIAL (10MG/ML) FOR IV START INTRADERMA ONE (11:51)
[2016-07-22] MEDS ORDERED: fentaNYL (PF) 50 MCG/ML 2 ML AMP IV ONE ×2 (11:56→12:00)
[2016-07-22] MEDS ORDERED: ONDANSETRON 4 MG/2 ML VIAL IVP ONE (12:13)
[2016-07-22] MEDS ORDERED: LIDOCAINE 1% INJ 10MG/ML (20 ML MDV) ONE (12:30)
[2016-07-22] MEDS ORDERED: fentaNYL (PF) 50 MCG/ML 2 ML AMP ONE (12:30)
[2016-07-22] MEDS ORDERED: PHENYLEPHRINE-0.9% NACL SYG 1 MG/10 ML SYRINGE ONE (12:30)
[2016-07-22] MEDS ORDERED: GLYCOPYRROLATE 0.2 MG/ML 2 ML VIAL ONE (12:30)
[2016-07-22] MEDS ORDERED: ROCURONIUM BROMIDE 10 MG/ML 10 ML VIAL IV ONE (12:30)
[2016-07-22] MEDS ORDERED: HYDROmorphone (PF) 1 MG/ML ONE (12:30)
[2016-07-22] MEDS ORDERED: ePHEDrine 50 MG/ML 1 ML AMP ONE (12:30)
[2016-07-22] MEDS ORDERED: PROPOFOL 10 MG/ML 20 ML VIAL IV ONE (12:30)
[2016-07-22] MEDS ORDERED: SUCCINYLCHOLINE CHLORIDE 100 MG/5 ML SYR IV ONE (12:30)
[2016-07-22] MEDS ORDERED: NEOSTIGMINE 1 MG/ML 10 ML VIAL ONE (12:30)
[2016-07-22] MEDS ORDERED: SODIUM CHLORIDE 0.9% 100 ML with ceFAZolin 1,000 MG IV ONE ×2 (12:50)
[2016-07-22] MEDS ORDERED: METHYLENE BLUE 15 MG in DEXTROSE 5% IN WATER 500 ML IRRIGATION ONE ×2 (13:01)
[2016-07-22] MEDS: KETOROLAC 30 MG/ML 1 ML VIAL IVP SCH (13:20)
[2016-07-22] MEDS: HYDROmorphone 1 MG/ML 1 ML SYRINGE IVP ONE ×2 (13:20→13:30)
--- NOTE | 2016-07-22 16:15 | P.OP ---
Date of Procedure: 07/22/16 Preoperative Diagnosis: Bladder Laceration Postoperative Diagnosis: Same Procedure(s) Performed: Exploratory Laparotomy, Repair of Bladder Laceration Implants: Anesthesia: TESFAYE Surgeon: Ruben Alvarez Field Contact Person #1: Pradeep Pedroza Estimated Blood Loss (ml): 50 IV fluids (ml): 1,300 Pathology: none sent Condition: stable Disposition: PACU Indications for Procedure: The patient is a 41-year-old woman who underwent an emergent section on 07/19/2016 for hemorrhage. She experienced pain and difficulty voiding upon removal of her Lomeli catheter yesterday, and a cystogram showed evidence of contrast extravasation consistent with a bladder laceration. She now comes for surgical repair. Operative Findings: Anterior bladder wall laceration Description of Procedure: The patient was taken to the operating room and placed in the supine position. The abdomen was prepped and draped sterilely. The surgical kaylyn were removed , and her Pfannenstiel incision was opened. Fascial sutures were removed. Fluid was drained from the abdomen. The post-gravid uterus was significantly enlarged. Inferiorly, blunt dissection was performed along the underside of the pubis to develop the space of Retzius. As the bladder was exposed, the bladder laceration was identified on the anterior bladder wall. It measured approximately 5-6 cm in length. Through this opening, the interior of the bladder was carefully examined, and no other abnormalities were identified. Blunt digital dissection was performed on the lateral aspects of the exterior of bladder to mobilize the bladder away from the pelvic sidewall and thus minimize any tension on the bladder closure. It was decided that it would be more optimal to close the bladder longitudinally rather than transversely. Some redundant detrusor muscle was noted at the inferior aspect of the laceration. The laceration was closed in 2 layers. The mucosa was closed using 3-0 Vicryl suture in a running fashion, and the muscle was closed using 2- 0 Vicryl suture in a running fashion. The flap of detrusor muscle was then advanced over the incision, and was secured in place using Vicryl suture in a running fashion. This covered the majority of the incision, and the upper aspect of the incision was covered by advancing some nearby connective tissue over the incision and securing it in place using Vicryl suture. 150 mL of methylene blue was then instilled into the bladder, and there was no evidence of extravasation from the repaired laceration or elsewhere. The peritoneal cavity was thoroughly irrigated using warm normal saline. This was done until the return of irrigant was clear. 0 Vicryl suture was used to close the peritoneum in a running fashion. A Chris-Hager drain was left within the space of Retzius, overlying the bladder. This was brought out through a separate stab incision to the left of the midline, inferior to the surgical incision. The drain was sutured to the skin using nylon suture, and was later attached to bulb suction. The anterior rectus fascia was closed using 0 PDS suture in a running fashion. Kale's fascia was closed, and the skin was then closed using kaylyn. All sponge and needle counts were correct. The wound was covered with an Optifoam Gentle Post-Op Silver dressing. The Lomeli catheter remained connected to gravity drainage. The patient tolerated the procedure well was taken to the recovery room in stable condition.
--- NOTE | 2016-07-22 16:16 | P.PN ---
Subjective Date of service 07/22/2016. Progress note being dictated for Dr. Posada. Interval history: This is a 41-year-old female status post emergent repeat low transverse related to ruptured placenta, anemia secondary to uterine hemorrhage, hyponatremia, sepsis and multiple other medical issues. Yesterday complaining of diffuse sharp abdominal pain radiating from suprapubic to all over the abdomen to left flank area. Yesterday,anuric,developed acute renal failure with hyperkalemia, IV fluids initiated, treated with calcium gluconate, Kayexalate, regular insulin regimen. Renal function improving, currently 1.18, potassium improved at 4.8, sodium 131. Renal and bladder Ultrasound performed reporting negative for obstructive uropathy, no hydronephrosis, urinary bladder anechoic, small volume free flowing peritoneal fluid noted. Abdominal x-ray reported dilated small bowel loops , small amount of colonic bowel in the ascending colon region possible postoperative ileus, possible early obstruction. Cystourethrogram reported bladder laceration with contrast into the left side of pelvis. Evaluated by Urology, scheduled for bladder repair in a.m. Hypertensive, home med of labetalol resumed at a lower dose. Pain management as per Dr. Pedroza. CT of abdomen and pelvis reporting moderate amount of free fluid and mild amount free gas, probable postoperative colonic ileus. Surgery consulted. Maintained on Zosyn. Tachycardic, lactic acid 1, Febrile, T-max 101.5, WBC 12.8, infectious disease consulted. Blood cultures pending.Urine cultures no growth at 18 hours. Denies chest pain, palpitations or increasing shortness of breath. Denies nausea or emesis, or diarrhea. Denies focal deficits, lightheadedness or dizziness. Complains of abdominal pain, denies worsening, recently medicated with Dilaudid IV push. Hemoglobin 9.4, platelets 248, and INR 1.0. Neutrophils 1.5. Active Medications Acetaminophen/Codeine Phosphate (Tylenol #3) 2 each PO Q4HR PRN PRN Reason: Pain Last Admin: 07/21/16 23:13 Dose: 2 each Butorphanol Tartrate (Stadol) 1 mg IV Q2HR PRN PRN Reason: Breakthrough Pain Last Admin: 07/21/16 20:50 Dose: 1 mg Hydromorphone HCl (Dilaudid) 1 mg IVP Q2HR PRN PRN Reason: Severe Pain Last Admin: 07/22/16 10:37 Dose: 1 mg Sodium Chloride (Saline 0.9%) 1,000 mls @ 125 mls/hr IV .Q8H KIA Last Admin: 07/22/16 04:05 Dose: 125 mls/hr Piperacillin/Tazobactam/ (Dextrose 3.375 gm/ IV Solution) 50 mls @ 12.5 mls/hr IVPB Q8HR KIA Last Admin: 07/22/16 03:12 Dose: 12.5 mls/hr Acetaminophen 1,000 mg/ IV (Solution) 100 mls @ 400 mls/hr IVPB Q6HR PRN PRN Reason: Fever Stop: 07/23/16 03:15 Last Admin: 07/22/16 04:19 Dose: 400 mls/hr Labetalol HCl (Trandate) 100 mg PO ONCE PRN PRN Reason: Blood Pressure - High Miscellaneous Information (Magnesium Per Protocol) 1 each MISCELLANE DAILY PRN ; Protocol PRN Reason: Per Protocol Naloxone HCl (Narcan) 0.2 mg IV Q2M PRN PRN Reason: Opioid Reversal Oxycodone/Acetaminophen (Percocet 7.5-325) 1 each PO Q4HR PRN PRN Reason: Pain Last Admin: 07/21/16 15:47 Dose: 1 each Polysaccharide Iron Complex (Niferex-150 Forte) 1 each PO DAILY@1200 KIA Last Admin: 07/21/16 13:50 Dose: Not Given Objective - Vital Signs Vital signs: Vital Signs Temp 99.6 F 07/22/16 14:07 Pulse 103 H 07/22/16 14:32 Resp 16 07/22/16 14:32 BP 125/68 07/22/16 14:32 Pulse Ox 95 07/22/16 14:32 Intake & Output 07/21/16 07/22/16 07/22/16 18:59 06:59 18:59 Intake Total 234 422 0833 Output Total 1350 1400 1275 Balance -1250 -650 325 Weight 84.5 kg 90 kg Intake: IV 350 1600 ACETAMINOPHEN IV (For NPO 100 ) 1,000 mg In Empty Bag 1 bag @ 400 mls/hr IVPB Q6HR PRN Rx#:[id number] Sodium Chloride 0.9% 1, 250 000 ml @ 125 mls/hr IV . Q8H REPLACED BY [facility] Rx#:[id number] Intake, IV Titration 100 Amount Calcium Gluconate 1,000 100 mg In Sodium Chloride 0.9 % 100 ml @ 100 mls/hr IVPB ONCE ONE Rx#: [id number] Oral 400 Output: Urine 1350 1400 1250 Uretheral (Lomeli) 50 700 Estimated Blood Loss 25 Other: Voiding Method Toilet Indwelling Catheter Indwelling Catheter # Voids 0 - Exam PHYSICAL EXAM: VITAL SIGNS: [As above] GENERAL: [Lying in bed, tired appearing, no acute distress] HEENT: [Pupils equal conjunctiva normal. No conjunctival pallor] NECK: [Supple, no JVD] RESPIRATORY EFFORT:[ Normal] LUNGS: [Clear with Bilateral bases diminished, no wheezes rhonchi or crackles] CARDIOVASCULAR[ regular S1 and S2, occasional mild tachycardia, no murmurs rubs or gallops, no edema] GI: [Abdomen distended, tympanic status post surgery, sluggish bowel sounds. No rigidity.] PSYCH: [Alert and oriented -3, mood and affect normal.] NEURO: Gross neurological examination did not reveal any focal deficits.] - Labs CBC & Chem 7: 07/22/16 05:22 07/22/16 05:22 Labs: Abnormal Lab Results - Last 24 Hours (Table) 07/21/16 07/21/16 07/21/16 Range/Units 14:58 23:25 23:25 WBC (3.8-10.6) k/uL RBC 3.79 L (3.80-5.40) m/uL Hgb 10.5 L (11.4-16.0) gm/dL Hct 32.9 L (34.0-46.0) % RDW 24.1 H (11.5-15.5) % Neutrophils # (Manual) (1.3-7.7) k/uL Lymphocytes # (Manual) 0.2 L (1.0-4.8) k/uL ABG pH (7.35-7.45) ABG pCO2 (35-45) mmHg ABG HCO3 (21-25) mmol/L ABG Total CO2 (19-24) mmol/L ABG O2 Saturation (94-97) % Sodium 129 L 130 L (137-145) mmol/L Carbon Dioxide 19 L 19 L (22-30) mmol/L Creatinine 2.23 H 1.50 H (0.52-1.04) mg/dL Glucose 107 H 103 H (74-99) mg/dL Osmolality (280-301) mosm/kg Calcium (8.4-10.2) mg/dL Phosphorus (2.5-4.5) mg/dL Alkaline Phosphatase 162 H (38-126) U/L Total Protein 5.8 L (6.3-8.2) g/dL Albumin 3.1 L (3.5-5.0) g/dL TSH (0.465-4.680) mIU/L 07/21/16 07/22/16 07/22/16 Range/Units 23:48 05:22 05:22 WBC 12.8 H (3.8-10.6) k/uL RBC 3.41 L (3.80-5.40) m/uL Hgb 9.4 L (11.4-16.0) gm/dL Hct 28.6 L (34.0-46.0) % RDW 24.0 H (11.5-15.5) % Neutrophils # (Manual) 11.5 H (1.3-7.7) k/uL Lymphocytes # (Manual) (1.0-4.8) k/uL ABG pH 7.51 H (7.35-7.45) ABG pCO2 22 L (35-45) mmHg ABG HCO3 17 L (21-25) mmol/L ABG Total CO2 18 L (19-24) mmol/L ABG O2 Saturation 98.0 H (94-97) % Sodium 131 L (137-145) mmol/L Carbon Dioxide 20 L (22-30) mmol/L Creatinine 1.18 H (0.52-1.04) mg/dL Glucose (74-99) mg/dL Osmolality (280-301) mosm/kg Calcium 7.6 L (8.4-10.2) mg/dL Phosphorus 5.2 H (2.5-4.5) mg/dL Alkaline Phosphatase 128 H (38-126) U/L Total Protein 5.4 L (6.3-8.2) g/dL Albumin 2.6 L (3.5-5.0) g/dL TSH 6.470 H (0.465-4.680) mIU/L 07/22/16 Range/Units 11:00 WBC (3.8-10.6) k/uL RBC (3.80-5.40) m/uL Hgb (11.4-16.0) gm/dL Hct (34.0-46.0) % RDW (11.5-15.5) % Neutrophils # (Manual) (1.3-7.7) k/uL Lymphocytes # (Manual) (1.0-4.8) k/uL ABG pH (7.35-7.45) ABG pCO2 (35-45) mmHg ABG HCO3 (21-25) mmol/L ABG Total CO2 (19-24) mmol/L ABG O2 Saturation (94-97) % Sodium (137-145) mmol/L Carbon Dioxide (22-30) mmol/L Creatinine (0.52-1.04) mg/dL Glucose (74-99) mg/dL Osmolality 274 L (280-301) mosm/kg Calcium (8.4-10.2) mg/dL Phosphorus (2.5-4.5) mg/dL Alkaline Phosphatase (38-126) U/L Total Protein (6.3-8.2) g/dL Albumin (3.5-5.0) g/dL TSH (0.465-4.680) mIU/L Microbiology - Last 24 Hours (Table) 07/21/16 10:00 Urine Culture - Final Urine,Catheterized 07/19/16 22:08 Urine Culture - Final Urine,Catheterized Assessment and Plan Plan: 1. [ Acute renal failure, fractional excretion of sodium less than 1, consistent with renal, post renal causes, not azotemia]. 2. [ Ruptured placenta, status post emergent ]. 3. [ Fevers, leukocytosis, tachycardia, most likely intra-abdominal infection with sepsis. Lacerated bladder 4. [ Hyponatremia, possibly SIADH from pain, urine osmolality pending, urine random sodium low at 28, serum osmolality low at 274, TSH, T4 pending 5. [ Hypertension]. 6. [ Hyperkalemia secondary to acute renal failure, improving with above mentioned measures]. 7. [ Colonic ileus, surgical consult in place]. 8. Acute hypoxic respiratory failure, related to abdominal distention, currently on 1-2 L nasal cannula maintaining O2 sats of 98%. Plan: Continue on current medication regime ,monitoring and symptomatic treatment. Infectious disease consulted with recommendations pending. Cultures pending, close monitoring. Surgery consult in place. As mentioned above scheduled for bladder repair with urology today. Close monitoring of electrolytes, CBC with repeat labs ordered for a.m. thyroid Levels pending. Prognosis guarded given multiple complex medical issues. Further recommendations to follow. The impression and plan of care has been dictated as directed as a scribe. : I performed a H&P examination of this patient and discussed the same with the dictator. I agree with the dictator's note. Any additional findings/opinions/ etc. will be noted.
[2016-07-22] MEDS: IRON PS CMPLX/VIT B12/FA 1 EACH CAP PO SCH (18:14)
[2016-07-23] MEDS: SODIUM CHLORIDE 0.9% 1,000 ML IV SCH ×3 (03:08→22:24)
--- NOTE | 2016-07-23 05:11 | CONS ---
DATE OF CONSULTATION: DATE OF SERVICE: 07/22/2016 REASON FOR CONSULTATION: Postop sepsis. HISTORY OF PRESENT ILLNESS: The patient is a 41-year-old female who presented to the ER on 07/19/2016 with heavy vaginal bleeding and who is 30 weeks of gestation and baby heart tones found only to be in the 70s or below. The patient subsequently underwent emergent section. The patient was noticed to have stillborn female baby and ( ) placenta. Subsequently the patient has been admitted to the ICU postop as the patient started having pain in the abdominal area after the Lomeli catheter has been discontinued. The patient did have a cystourethrogram done on 07/11, which shows laceration or leak with contrast extravasation into the pelvis on the left side. The patient did spike a fever of 101.1 degrees Fahrenheit, it was 100.9 this morning. The patient did have elevated white count 12.9. CT of the abdomen and pelvis has been done which did show moderate amount of free fluid and mild amount of free gas as discussed probably postoperative colonic ileus. The patient had been started on Zosyn. ID was consulted for further recommendation of antibiotic therapy. Subsequently the patient had been evaluated by Dr. Ruben Alvarez from urology. The patient has been taken back to the OR, status post exploratory laparotomy and repair of the bladder laceration. The patient was evaluated earlier this afternoon where the patient has been complaining of pain. Pain has been mostly diffuse abdominal area, almost 7 to 8 out of 10 with some improvement with the pain medication. Has felt nauseated, but no vomiting. The patient denies having any bowel movement since surgery. Patient denies having any significant chest pain or shortness of breath or cough. REVIEW OF SYSTEMS: CONSTITUTIONAL: Positive for weakness and a fever. EYES: No complaint. ENT: No complaint. RESPIRATORY: Shortness of breath. CARDIOVASCULAR: No complaint. GENITOURINARY: As per HPI. GASTROINTESTINAL: As per HPI. MUSCULOSKELETAL: No complaint. INTEGUMENTARY: No complaint. PSYCHOLOGICAL: No complaint. ENDOCRINE: No complaint. NEUROLOGICAL: No complaint. PAST MEDICAL HISTORY: Significant for hypertension, iron deficiency anemia, UTI. PAST SURGICAL HISTORY: Appendectomy, . SOCIAL HISTORY: Former smoker. No drinking or drug use. FAMILY HISTORY: Father with history of [place], age of 51 from [place]. Mother with history of hypertension, age of 69. ALLERGIES: No known drug allergies MEDICATIONS: The patient is currently on Tylenol, Stadol, Dilaudid, Narcan, Percocet, piperacillin tazobactam and IV fluid. On examination, blood pressure is 134/91 with a pulse of 95, temperature 98.2, T-max is 101. She is 94% on 1 L nasal cannula. General description is a young female, lying in bed in no distress. Some tachypnea or ( ) respiration usage. HEENT examination shows slight pallor. No scleral icterus. Oral mucous membrane is dry. NECK: Trachea central, no thyromegaly. LUNGS: Unlabored breathing. Clear to auscultation anteriorly. HEART: S1, S2 regular rate and rhythm. ABDOMEN: Soft, distended. Slightly guard, no rigidity. EXTREMITIES: No edema of feet. SKIN EXAMINATION: No rashes or masses palpable. NEUROLOGICAL: The patient is awake, alert, oriented x3. Mood and affect normal. LABS: Hemoglobin 9.4, white count 12.8. BUN of 13, creatinine 1.18. Urine slightly positive. Blood culture has been obtained, which is currently pending. Urine culture is pending. DIAGNOSTIC IMPRESSION AND PLAN: Patient with postoperative sepsis in a patient who did have fever of 101 degrees Fahrenheit, did have elevated white count in a patient who did undergo emergent section with laceration of the bladder and extravasation of the urine. The patient did have a UA on admission ( ) significantly positive, however, repeat was slightly positive, but likely organism ( ) will need gram-negative enteric shivani, mostly responsible for this episode of peritonitis also which could have been just the chemical status post repair of the laceration of the bladder. PLAN: 1. Patient to be continued on Zosyn 3.375 gram q.8. This should provide adequate coverage for possible gram negative infection. 2. We will continue to monitor closely and watch urine cultures and adjust antibiotic further if needed. Thank you for this consultation. Will follow this patient along with you. was present at the bedside. His questions and concerns were answered.
[2016-07-23] MEDS: HYDROmorphone 1 MG/ML 1 ML SYRINGE IVP PRN ×3 (05:51→18:09)
[2016-07-23 07:11] LABS: Anisocytosis Marked; Basophils % (A) 0 %; CH 27.8; CHCM 31.6; Eosinophils % (A) 0 %; HCT 26.2 % (34.0-46.0); HDW 2.59; HGB 8.2 gm/dL (11.4-16.0); Hypochromasia Slight; Luc # (Auto) 0.12; Luc % (Auto) 1; Lymphocytes # (A) 0.6 k/uL (1.0-4.8); Lymphocytes % (A) 5 %; MCH 27.4 pg (25.0-35.0); MCHC 31.1 g/dL (31.0-37.0); Mean Platelet Volume 7.4; Microcytosis Moderate; Monocytes # (A) 0.3 k/uL (0-1.0); Monocytes % (A) 3 %; Neutrophils # (A) 12.4 k/uL (1.3-7.7); Neutrophils % (A) 92 %; RBC 2.98 m/uL (3.80-5.40); RDW 24.5 % (11.5-15.5); WBC 13.5 k/uL (3.8-10.6); WBC (Perox) 13.67
[2016-07-23 07:16] LABS: INR 1.1 (<1.1); Partial Thromboplastin Time 26.6 sec (22.0-30.0); Prothrombin Time 10.6 sec (9.0-12.0)
[2016-07-23 07:25] LABS: ALT 30 U/L (9-52); AST 22 U/L (14-36); Alkaline Phosphatase 127 U/L (38-126); Anion Gap 8 mmol/L; Blood Urea Nitrogen 20 mg/dL (7-17); Calcium 7.6 mg/dL (8.4-10.2); Carbon Dioxide 21 mmol/L (22-30); Chloride 108 mmol/L (98-107); Glucose 92 mg/dL (74-99); Magnesium 2.5 mg/dL (1.6-2.3); Non-African American GFR(MDRD) 58 (>60 ml/min/1.73 sqM); Phosphorous 4.4 mg/dL (2.5-4.5); Potassium 4.4 mmol/L (3.5-5.1); Sodium 137 mmol/L (137-145); Total Bilirubin 0.4 mg/dL (0.2-1.3); Total Protein 5.2 g/dL (6.3-8.2)
--- NOTE | 2016-07-23 09:07 | P.PN ---
Progress Note - Text Patient seen and evaluated today postop day 4 from a section postop day 1 from bladder repair. Overall she looks significantly improved over seen her yesterday her pain is much much better. Her abdominal distention is down and her abdomen is significantly softer but still a little tender and distended. She does have a few bowel sounds. She is still nothing by mouth at this time. We'll try and encourage some ambulation today. Potentially even consider using something to help move her bowels long if she continues to not passed flatus. It is noted that her hemoglobin did drop again from yesterday to today although I find no active bleeding where we would normally expect to see that large of a drop in hemoglobin some air within lab along with extra hydration from surgery and potentially some small blood loss from surgery may account for this however. Her blood pressure significant only better today and has is her tachypnea. On physical exam her heart otherwise is regular and her lungs are clear. Again her abdomen is less distended with hypoactive bowel sounds but there are some sounds present. We'll expect as fluid continues to drain from her abdomen that her ileus shouldn't improve spontaneously. Assessment postop and repair. Plan continue current care with expectation that diet might be able to be resumed once passing flatus.
--- NOTE | 2016-07-23 09:49 | P.PN ---
Subjective POD #1, s/p exploratory laparotomy with closure of bladder laceration. She feels much better today. She has not passed flatus, and continues to report some abdominal discomfort. She has yet to ambulate. She is somewhat hungry. Objective - Vital Signs Vital signs: Vital Signs Temp 97.0 F L 07/23/16 04:00 Pulse 92 07/23/16 04:00 Resp 20 07/23/16 04:00 BP 137/80 07/23/16 04:00 Pulse Ox 95 07/23/16 04:00 Intake & Output 07/22/16 07/23/16 07/23/16 18:59 06:59 18:59 Intake Total 1700 120 Output Total 1775 1470 Balance -75 -1350 Weight 90 kg 87 kg Intake: IV 1700 Oral 120 Output: Drainage 120 Abdomen 120 Urine 1750 1350 Uretheral (Lomeli) 1350 Estimated Blood Loss 25 Other: Voiding Method Indwelling Catheter Indwelling Catheter # Voids 0 - Constitutional General appearance: Present: cooperative, no acute distress - Gastrointestinal Gastrointestinal Comment(s): The dressing is intact. Serous drainage is noted at the drain site. General gastrointestinal: Present: soft, tenderness (Mild diffuse tenderness, without guarding or rebound) - Labs CBC & Chem 7: 07/23/16 06:40 07/23/16 06:40 Labs: Abnormal Lab Results - Last 24 Hours (Table) 07/22/16 07/23/16 07/23/16 Range/Units 11:00 06:40 06:40 WBC 13.5 H (3.8-10.6) k/uL RBC 2.98 L (3.80-5.40) m/uL Hgb 8.2 L (11.4-16.0) gm/dL Hct 26.2 L (34.0-46.0) % RDW 24.5 H (11.5-15.5) % Neutrophils # 12.4 H (1.3-7.7) k/uL Lymphocytes # 0.6 L (1.0-4.8) k/uL Chloride 108 H (98-107) mmol/L Carbon Dioxide 21 L (22-30) mmol/L BUN 20 H (7-17) mg/dL Osmolality 274 L (280-301) mosm/kg Calcium 7.6 L (8.4-10.2) mg/dL Magnesium 2.5 H (1.6-2.3) mg/dL Alkaline Phosphatase 127 H (38-126) U/L Total Protein 5.2 L (6.3-8.2) g/dL Albumin 2.5 L (3.5-5.0) g/dL Microbiology - Last 24 Hours (Table) 07/21/16 23:25 Blood Culture - Preliminary Blood No Growth after 24 hours 07/21/16 10:00 Urine Culture - Final Urine,Catheterized Assessment and Plan (1) Bladder laceration as postoperative complication Status: Acute Plan: Begin full liquid diet. Ambulate. Monitor hemoglobin level. Continue Lomeli catheter and SADAF drain.
[2016-07-23] MEDS: PIPERACILLIN-TAZOBACTAM 3.375 GM in DEXTROSE/WATER 1 50ML.BAG IVPB SCH ×3 (09:53→23:53)
[2016-07-23] MEDS: IRON PS CMPLX/VIT B12/FA 1 EACH CAP PO SCH (11:12)
[2016-07-23] MEDS: Acetaminophen-Codeine 300-30mg TAB PO PRN ×2 (11:12→18:09)
--- NOTE | 2016-07-23 16:31 | US ---
EXAMINATION TYPE: US venous doppler duplex UE LT DATE OF EXAM: 07/23/2016 COMPARISON: NONE CLINICAL HISTORY: left upper extremity swelling with tingling.. SIDE PERFORMED: left Left Arm: Appears negative for DVT Brachial artery appears duplicate, no DVT. There is a superficial clot in the basilic v. Deep veins of left upper extremity show satisfactory color flow, phasicity, and compressibility where accessible. Basilic vein shows heterogeneous hyperechoic material with minimal color flow, acute thr ombus is suspected. Noncompression is noted. Normal flow and compressibility in cephalic vein is seen . IMPRESSION: Acute venous thrombosis of superficial left basilic vein.
--- NOTE | 2016-07-23 17:45 | PN ---
Patient is a 41 -year-old lady clinically doing well. The patient did not pass gas yet but the patient does have bowel sounds. Abdominal pain improved. Patient underwent repair of bladder laceration yesterday with some improvement in her pain and blood pressure. Patient's kidney function did improve as well. Patient remains stable. Leukocytosis, but the patient is on Zosyn for ( ) from her recent surgery, intraabdominal peritoneal sepsis from recent surgery. REVIEW OF SYSTEMS: CARDIOVASCULAR: No chest pain, no orthopnea, no PND, no palpitations. PULMONARY: Denied any shortness of breath. No cough or hemoptysis. GASTROINTESTINAL: As described in HPI. NEUROLOGIC: No headaches, no weakness, no numbness. Medications are reviewed. PHYSICAL EXAMINATION: VITAL SIGNS: Temperature 98.5, pulse 104, respiratory rate of 18, blood pressure is 150/94, saturating at 98% on 1 liter O2 by nasal cannula. GENERAL: The patient is alert and oriented x3, not in any acute distress. Well developed, well nourished. HEENT: Pupils are round and equally reacting to light. EOMI. No scleral icterus. No conjunctival pallor. Normocephalic, atraumatic. No pharyngeal erythema. No thyromegaly. CARDIOVASCULAR: S1 and S2 present. No murmurs, rubs, or gallops. PULMONARY: Chest is clear to auscultation, no wheezing or crackles. ABDOMEN: Remains to be distended ( ) tympanic, does have bowel sounds small. MUSCULOSKELETAL: No joint swelling or deformity. EXTREMITIES: No cyanosis, clubbing, or pedal edema. NEUROLOGICAL: Gross neurological examination did not reveal any focal deficits. SKIN: No rashes. Creatinine improved to 1.04, BUN 20 at this time. WBC count 13,500. Today I was notified the patient has swelling of the right upper limbs as she has IV line for which we will obtain ultrasound of the right upper limb. ASSESSMENT AND PLAN: 1. Sepsis, possibly intraabdominal post surgical and patient is on Rocephin at this point of time. 2. Acute renal failure possible oliguric acute tubular necrosis cannot be ruled out. The patient may have ( ) causes as well from laceration of the bladder. The patient had ( ) repair and the patient his having urine output and kidney function improved. 3. Abruptia placenta for which patient underwent emergency section, management as per OB services. 4. Hyponatremia; possibly from syndrome of inappropriate antidiuretic hormone from pain, which improved at this point of time. 5. Hypertension secondary to pain which also improved with management of pain. 6. Ileus which appears to be improving with good bowel sounds.
[2016-07-24] MEDS: SODIUM CHLORIDE 0.9% 1,000 ML IV SCH ×5 (03:47→22:15)
[2016-07-24] MEDS: Acetaminophen-Codeine 300-30mg TAB PO PRN ×3 (03:48→19:03)
[2016-07-24] MEDS: HYDROmorphone 1 MG/ML 1 ML SYRINGE IVP PRN ×2 (03:50→13:50)
[2016-07-24 06:42] LABS: Anisocytosis Moderate; Basophils % (A) 0 %; CH 27.6; CHCM 31.9; Eosinophils # (A) 0.4 k/uL (0-0.7); Eosinophils % (A) 3 %; HCT 24.6 % (34.0-46.0); HDW 2.83; HGB 7.8 gm/dL (11.4-16.0); Hypochromasia Slight; Luc # (Auto) 0.18; Luc % (Auto) 1; Lymphocytes # (A) 1.6 k/uL (1.0-4.8); Lymphocytes % (A) 10 %; MCH 27.4 pg (25.0-35.0); MCHC 31.5 g/dL (31.0-37.0); MCV 86.8 fL (80.0-100.0); Mean Platelet Volume 6.8; Microcytosis Moderate; Monocytes # (A) 0.4 k/uL (0-1.0); Monocytes % (A) 3 %; Neutrophils # (A) 13.6 k/uL (1.3-7.7); Neutrophils % (A) 84 %; RBC 2.83 m/uL (3.80-5.40); RDW 23.8 % (11.5-15.5); WBC 16.2 k/uL (3.8-10.6)
[2016-07-24 06:54] LABS: INR 0.9 (<1.1); Prothrombin Time 9.3 sec (9.0-12.0)
[2016-07-24 06:58] LABS: ALT 31 U/L (9-52); AST 20 U/L (14-36); Alkaline Phosphatase 153 U/L (38-126); Anion Gap 8 mmol/L; Blood Urea Nitrogen 18 mg/dL (7-17); Calcium 7.7 mg/dL (8.4-10.2); Carbon Dioxide 22 mmol/L (22-30); Chloride 108 mmol/L (98-107); Glucose 76 mg/dL (74-99); Magnesium 2.7 mg/dL (1.6-2.3); Non-African American GFR(MDRD) >60 (>60 ml/min/1.73 sqM); Phosphorous 2.8 mg/dL (2.5-4.5); Sodium 138 mmol/L (137-145); Total Bilirubin 0.2 mg/dL (0.2-1.3)
--- NOTE | 2016-07-24 07:19 | PN ---
DATE OF SERVICE: 07/23/2016 Reason for follow-up: Secondary peritonitis and possibility of ( ). INTERVAL HISTORY: The patient is afebrile. He is feeling better. Overall pain to the abdominal area has improved compared to yesterday. No significant chest pain, shortness of breath or cough. No nausea or vomiting. On examination, blood pressure 138/86 with a pulse of 83. Temperature 97.2. She is 98% on 1 L nasal cannula. General description is a middle-age female up in the chair in no distress. RESPIRATORY SYSTEM: Unlabored breathing. Clear to auscultation anteriorly. HEART: S1, S2. Regular rate and rhythm. ABDOMEN: Soft, slightly distended. LABS: Hemoglobin 8.1, white count 13.5 with a BUN of 20, creatinine 1.4. Blood and urine cultures so far negative. DIAGNOSTIC IMPRESSION AND PLAN: Patient with sepsis with secondary peritonitis in a patient who did have a perforated bladder, status post repair. Currently covered with Zosyn which will continue. We will follow-up on the culture to adjust antibiotic ( ).
[2016-07-24] MEDS: PIPERACILLIN-TAZOBACTAM 3.375 GM in DEXTROSE/WATER 1 50ML.BAG IVPB SCH ×2 (09:03→17:30)
[2016-07-24] MEDS: oxyCODONE-APAP 7.5-325MG 1 EACH TAB PO PRN (09:03)
[2016-07-24] MEDS: IRON PS CMPLX/VIT B12/FA 1 EACH CAP PO SCH (11:36)
--- NOTE | 2016-07-24 12:21 | P.GSCN ---
History of Present Illness Consult date: 07/24/16 Reason for Consult: Abdominal pain History of present illness: A 41-year-old female who underwent recent bladder repair after a bladder laceration during . Patient had significant pain preoperatively which was thought to be due to peritonitis from extravasated urine. Patient states her pain has improved currently. She is currently on a full liquid diet. Past Medical History Past Medical History: Hypertension Additional Past Medical History / Comment(s): iron deficiency anemia; UTI that was treated with antibiotics History of Any Multi-Drug Resistant Organisms: None Reported Past Surgical History: Appendectomy, Section Additional Past Surgical History / Comment(s): 3 previous c sections; appy when 13 Past Anesthesia/Blood Transfusion Reactions: No Reported Reaction Past Psychological History: No Psychological Hx Reported Smoking Status: Former smoker - Past Family History Father Family Medical History: Myocardial Infarction ([place]) Additional Family Medical History / Comment(s): at 51 from [place] Mother Family Medical History: Hypertension Additional Family Medical History / Comment(s): at 69 Medications and Allergies Home Medications Medication Instructions Recorded Confirmed Type Ferrous Sulfate [Feosol] 325 mg PO DAILY 07/19/16 07/19/16 History Labetalol [Trandate] 600 mg PO Q8H 07/19/16 07/19/16 History Pnv,Calcium 72/Iron/Folic Acid 1 tab PO DAILY 07/19/16 07/19/16 History [ Plus Tablet] Allergies Allergy/AdvReac Type Severity Reaction Status Date / Time No Known Allergies Allergy Verified 07/19/16 19:19 Surgical - Exam Vital Signs Temp Pulse Resp BP Pulse Ox 98.4 F 71 16 122/78 97 07/19/16 16:00 07/19/16 16:00 07/19/16 16:00 07/19/16 16:00 07/19/16 16:00 - General well developed, no distress - Eyes PERRL - Abdomen Mild incisional pain Abdomen: soft Results - Labs 07/24/16 06:21 07/24/16 06:21 Abnormal Lab Results - Last 24 Hours (Table) 07/24/16 07/24/16 Range/Units 06:21 06:21 WBC 16.2 H (3.8-10.6) k/uL RBC 2.83 L (3.80-5.40) m/uL Hgb 7.8 L (11.4-16.0) gm/dL Hct 24.6 L (34.0-46.0) % RDW 23.8 H (11.5-15.5) % Neutrophils # 13.6 H (1.3-7.7) k/uL Chloride 108 H (98-107) mmol/L BUN 18 H (7-17) mg/dL Calcium 7.7 L (8.4-10.2) mg/dL Magnesium 2.7 H (1.6-2.3) mg/dL Alkaline Phosphatase 153 H (38-126) U/L Total Protein 5.0 L (6.3-8.2) g/dL Albumin 2.5 L (3.5-5.0) g/dL Microbiology - Last 24 Hours (Table) 07/21/16 23:25 Blood Culture - Preliminary Blood No Growth after 48 hours 07/22/16 16:22 Blood Culture - Preliminary Blood No Growth after 24 hours 07/22/16 15:55 Blood Culture - Preliminary Blood No Growth after 24 hours Diabetes panel 07/24/16 Range/Units 06:21 Sodium 138 (137-145) mmol/L Potassium 4.0 (3.5-5.1) mmol/L Chloride 108 H (98-107) mmol/L Carbon Dioxide 22 (22-30) mmol/L BUN 18 H (7-17) mg/dL Creatinine 1.00 (0.52-1.04) mg/dL Glucose 76 (74-99) mg/dL Calcium 7.7 L (8.4-10.2) mg/dL AST 20 (14-36) U/L ALT 31 (9-52) U/L Alkaline Phosphatase 153 H (38-126) U/L Total Protein 5.0 L (6.3-8.2) g/dL Albumin 2.5 L (3.5-5.0) g/dL Calcium panel 07/24/16 Range/Units 06:21 Calcium 7.7 L (8.4-10.2) mg/dL Phosphorus 2.8 (2.5-4.5) mg/dL Albumin 2.5 L (3.5-5.0) g/dL Pituitary panel 07/24/16 Range/Units 06:21 Sodium 138 (137-145) mmol/L Potassium 4.0 (3.5-5.1) mmol/L Chloride 108 H (98-107) mmol/L Carbon Dioxide 22 (22-30) mmol/L BUN 18 H (7-17) mg/dL Creatinine 1.00 (0.52-1.04) mg/dL Glucose 76 (74-99) mg/dL Calcium 7.7 L (8.4-10.2) mg/dL Adrenal panel 07/24/16 Range/Units 06:21 Sodium 138 (137-145) mmol/L Potassium 4.0 (3.5-5.1) mmol/L Chloride 108 H (98-107) mmol/L Carbon Dioxide 22 (22-30) mmol/L BUN 18 H (7-17) mg/dL Creatinine 1.00 (0.52-1.04) mg/dL Glucose 76 (74-99) mg/dL Calcium 7.7 L (8.4-10.2) mg/dL Total Bilirubin 0.2 (0.2-1.3) mg/dL AST 20 (14-36) U/L ALT 31 (9-52) U/L Alkaline Phosphatase 153 H (38-126) U/L Total Protein 5.0 L (6.3-8.2) g/dL Albumin 2.5 L (3.5-5.0) g/dL Assessment and Plan Plan: Status post exposure laparotomy for repair of bladder laceration. Patient seems to be doing well. Her pain prior to surgery is most likely early peritonitis caused from urine inflammation. The patient fully managed by urology and SURGICAL SERVICES DIRECTOR. We will sign off.
--- NOTE | 2016-07-24 14:01 | CDI ---
With regard to her bladder laceration. Bladder lacerations are a normal risk of any section. However in her specific case due to her 3 prior sections as well as the emergency nature of this surgery it is a well- known complication risk that she could have a injury to her bladder. Particularly in the setting of an emergency where we have no prior knowledge of her medical care. Bladder was repaired on postop day 3. It should be noted that due to her condition at the time of the section and with her going into shock and eating unstable there really was no time for opportunity to repair the bladder despite the fact that it was suspected at that time. The need to have her stabilized and moved to the intensive care unit for staple for further stabilization due to her low blood pressure and shock. In responding to this query, please exercise your independent professional judgment. The [facility] Coding Staff and Clinical Documentation Specialists appreciate your assistance in clarifying documentation, maintaining compliance with coding guidelines, accurately documenting patients condition and capturing severity of illness. The fact that a question is asked does not imply that any particular answer is desired or expected. Communication forms are a method of clarifying documentation and are not made part of the Legal Health Record. Thank you in advance for your clarification. Last Revision, Mar 2016 [address] [place] [address] Documentation Clarification Form Date: 07/24/2016 1:24:00 PM From: Jordana Armas Admit Date: 07/19/2016 6:49:00 PM Patient Name: Kaylyn Durham Visit Number: [id number] Discharge Date: Dr. Pradeep Pedroza Lacerations of bladder as postoperative complication is documented in the consult on 07/21/16 with additional progress notes indicating a bladder laceration. Patients Admitting Diagnosis: Intrauterine at 30 weeks with placenta abruption Post-Operative Diagnosis: Same Procedure performed: Repeat low transverse section History/Risk Factors: Hypertension, Anemia, Iron deficiency anemia, previous section x3, Clinical Indicators: Patient was taken to OR in critical condition having large quantity of blood coming from her vagina. Treatment: Emergency section IV Fluids In order to accurately reflect this patients severity of illness, please further clarify if the post-operative bladder laceration is: An unexpected post-procedural or post-surgical condition, related to surgical care, or other condition (specify) An expected post-procedural or post-surgical condition Integral to the procedure Inherent to the procedure Other, please specify Unable to determine Please document in your progress notes in order to capture severity of illness and risk of mortality. Include clinical findings that support your diagnosis. FYI: Press F11 to launch patient chart Place X here if this finding has no clinical significance, is not applicable or if you are not able to provide any additional documentation. SANCHO
[2016-07-24 14:05] VITALS: BMI 30.2
--- NOTE | 2016-07-24 14:36 | CDI ---
In responding to this query, please exercise your independent professional judgment. The [facility] Coding Staff and Clinical Documentation Specialists appreciate your assistance in clarifying documentation, maintaining compliance with coding guidelines, accurately documenting patients condition and capturing severity of illness. The fact that a question is asked does not imply that any particular answer is desired or expected. Communication forms are a method of clarifying documentation and are not made part of the Legal Health Record. Thank you in advance for your clarification. Last Revision, Mar 2016 It is noted that the patient had a postoperative ileus. It is likely due to a combination of both her bladder injury and the emergency nature of her section. It is a well-known risk of any abdominal surgery and resolved without difficulty over the next [address] days[address] [place] [address] Documentation Clarification Form Date: 07/24/2016 2:06:00 PM From: Jordana Armas Admit Date: 07/19/2016 6:49:00 PM Patient Name: Kaylyn Durham Visit Number: [id number] Discharge Date: Dr. Pradeep Pedroza Possible postoperative ileus is documented in the progress notes on 07/21/16 and in your progress notes on 07/23/16 Clinical Indicators: Postop day 4 from a section postop day 1 from bladder repair. She has a few bowel sounds, not passing flatus. CT abdomen/pelvis 07/22/16: moderate amount of free fluid and mild amount of free gas. Probable postoperative colonic ileus. Treatment: NPO IV Fluids In order to accurately reflect this patients severity of illness, please clarify if the ileus: A complication of the procedure Integral to the procedure Inherent to the procedure Not clinically significant An unexpected post-procedural or post-surgical condition, related to (specify) Other, please specify Unable to determine Please document in your progress notes in order to capture severity of illness and risk of mortality. Include clinical findings that support your diagnosis. FYI: Press F11 to launch patient chart Place X here if this finding has no clinical significance, is not applicable or if you are not able to provide any additional documentation. SANCHO
--- NOTE | 2016-07-24 15:30 | P.PN ---
Subjective POD #2, s/p exploratory laparotomy with closure of bladder laceration. She feels much better today. She has passed flatus, and her abdominal discomfort is diminished. She is ambulating and tolerating soft diet. Objective - Vital Signs Vital signs: Vital Signs Temp 98.0 F 07/24/16 08:50 Pulse 85 07/24/16 08:50 Resp 18 07/24/16 08:50 BP 165/104 07/24/16 08:50 Pulse Ox 92 L 07/24/16 08:50 Intake & Output 07/23/16 07/24/16 07/24/16 18:59 06:59 18:59 Intake Total 2300 2100 236 Output Total 1200 2110 Balance 1100 -10 236 Weight 87.5 kg 87.5 kg Intake: IV 1000 2050 0.9 1500 Piperacillin-Tazobactam 3 50 .375 gm In Dextrose/Water 1 50ml.bag @ 12.5 mls/hr IVPB Q8HR [facility] Rx#: [id number] Sodium Chloride 0.9% 1, 1000 500 000 ml @ 125 mls/hr IV . Q8H [facility] Rx#:[id number] Intake, IV Titration 50 Amount Piperacillin-Tazobactam 3 50 .375 gm In Dextrose/Water 1 50ml.bag @ 12.5 mls/hr IVPB Q8HR [facility] Rx#: [id number] Oral 1300 236 Output: Drainage 10 Abdomen 10 Urine 1200 2100 Uretheral (Lomeli) 2100 Other: Voiding Method Indwelling Catheter Indwelling Catheter Indwelling Catheter - Constitutional General appearance: Present: average body habitus, cooperative, no acute distress - Gastrointestinal Gastrointestinal Comment(s): Incision clean and dry General gastrointestinal: Present: soft, tenderness (mild lazaro-incisional tenderness) - Psychiatric Psychiatric: Present: A&O x's 3, appropriate affect, intact judgment & insight - Labs CBC & Chem 7: 07/24/16 06:21 07/24/16 06:21 Labs: Abnormal Lab Results - Last 24 Hours (Table) 07/24/16 07/24/16 Range/Units 06:21 06:21 WBC 16.2 H (3.8-10.6) k/uL RBC 2.83 L (3.80-5.40) m/uL Hgb 7.8 L (11.4-16.0) gm/dL Hct 24.6 L (34.0-46.0) % RDW 23.8 H (11.5-15.5) % Neutrophils # 13.6 H (1.3-7.7) k/uL Chloride 108 H (98-107) mmol/L BUN 18 H (7-17) mg/dL Calcium 7.7 L (8.4-10.2) mg/dL Magnesium 2.7 H (1.6-2.3) mg/dL Alkaline Phosphatase 153 H (38-126) U/L Total Protein 5.0 L (6.3-8.2) g/dL Albumin 2.5 L (3.5-5.0) g/dL Microbiology - Last 24 Hours (Table) 07/21/16 23:25 Blood Culture - Preliminary Blood No Growth after 48 hours 07/22/16 16:22 Blood Culture - Preliminary Blood No Growth after 24 hours 07/22/16 15:55 Blood Culture - Preliminary Blood No Growth after 24 hours Assessment and Plan (1) Bladder laceration as postoperative complication Status: Acute Plan: Doing well. Anticipate discharge home with [facility] in 1-[address] Allison to cover through 07/26/2016. Will schedule cystogram on 08/03/2016.
--- NOTE | 2016-07-24 16:41 | P.PN ---
Progress Note - Text Patient is seen and evaluated. Her pain is relatively well controlled today she voices minimal complaints. Her vital signs have been much improved as well. It is noted that her hemoglobin did decrease slightly but I have no active source for her bleeding. There was no bleeding during the surgery that would explain this drop and she has minimal to no vaginal bleeding. However she is stable and she voices no complaints of significant lightheadedness or other hypotensive symptoms. She is now passing flatus and is tolerating a light diet. I believe the plan is to move her off of the selective care unit and down to a [facility] floor which is good news for her. We'll plan to continue very close follow-up with her for the next 1-2 days. The peritoneal drain has minimal fluid and was change this morning but there is less than 10 mL of fluid in the bulb at this time. She does report that she still feels somewhat weak and she'll definitely need to be on iron therapy as we move forward. However, depending on how she feels tomorrow or Wednesday the goal will hopefully to be able to get her home. Her incision is otherwise clean dry and intact. She has appointments with Dr. Grayson moving forward for continued care of her catheter and bladder laceration. Overall at this time she is stable. Assessment status post emergency and repair of bladder in second laparotomy. Plan continue care with goal for discharge later this weekend.
--- NOTE | 2016-07-24 20:12 | PN ---
Patient has significant clinical improvement even compared to yesterday. Patient does have bowel sounds. Did pass gas, did not move her bowels yet and patient abdomen is distended and a bit tympanic today. REVIEW OF SYSTEMS: CONSTITUTIONAL: No fever, no malaise, no fatigue. HEENT: No recent visual problems or hearing problems. Denied any sore throat. CARDIOVASCULAR: No chest pain, orthopnea, PND, no palpitations, no syncope. PULMONARY: No shortness of breath, no cough, no hemoptysis. GASTROINTESTINAL: As described in HPI. Patient still has a little bit of abdominal pain. NEUROLOGICAL: No headaches, no weakness, no numbness. HEMATOLOGICAL: Denies any bleeding or petechiae. GENITOURINARY: Denies any burning micturition, frequency, or urgency. MUSCULOSKELETAL/RHEUMATOLOGICAL: Denies any joint pain, swelling, or any muscle pain. ENDOCRINE: Denies any polyuria or polydipsia. The rest of the 14 point review of systems is negative. Medications were reviewed. PHYSICAL EXAMINATION: VITAL SIGNS: Temperature 98.0, pulse of 85, respiratory rate of 18, blood pressure is 152/89, saturating at 98% on room air. GENERAL: The patient is alert and oriented x3, not in any acute distress. Well developed, well nourished. HEENT: Pupils are round and equally reacting to light. EOMI. No scleral icterus. No conjunctival pallor. Normocephalic, atraumatic. No pharyngeal erythema. No thyromegaly. CARDIOVASCULAR: S1 and S2 present. No murmurs, rubs, or gallops. PULMONARY: Chest is clear to auscultation, no wheezing or crackles. ABDOMEN: Distended, but tympanic no rebound. No significant rebound or rigidity. Minimal diffuse tenderness was appreciated. MUSCULOSKELETAL: No joint swelling or deformity. EXTREMITIES: No cyanosis, clubbing, or pedal edema. NEUROLOGICAL: Gross neurological examination did not reveal any focal deficits. SKIN: No rashes. LABORATORY DATA: CBC is abnormal for elevated WBC count of 16,200, hemoglobin of 7.8, chloride is minimally elevated to 108, because of which I am cutting down the IV fluids. Creatinine improved to 1.0. ASSESSMENT AND PLAN: 1. Sepsis status sepsis, possible intraabdominal source. Patient still has leukocytosis. No fevers. Patient is on Zosyn. The patient may require Augmentin for about a week and this intra-abdominal sepsis is probably due to recent abdominal surgery. 2. Acute renal failure oliguric acute tubular necrosis versus bladder aspiration and post renal causes contributing to her anuria, although those are resolved and patient's kidney function improved. 3. Abruption of placenta. Management as per OB services. 4. Hyponatremia, probably syndrome of inappropriate antidiuretic hormone from pain, which improved at this point of time. 5. Hypertension. 6. Ileus which appears to be improving although patient still has distended abdomen. The patient will be transferred out of [facility] to [facility] floor without telemetry.
--- NOTE | 2016-07-24 22:59 | PN ---
DATE OF SERVICE: 07/24/2016 REASON FOR FOLLOWUP: Possible peritonitis in a patient with fevers and sepsis, postoperative section. INTERVAL HISTORY: The patient's overall feels better; has improved. Temperature is 99.3. Patient is feeling better. Abdominal pain has improved. Denies chest pain or shortness of breath or cough. On examination, blood pressure 141/85 with a pulse of 80, temperature of 99.3. She is 90% on room air. General description is a middle-aged female lying in bed in no distress. RESPIRATORY SYSTEM: Unlabored breathing. Clear to auscultation anteriorly. HEART: S1, S2. Regular rate and rhythm. ABDOMEN: Soft. Incision looks clean with no significant redness ( ) LABS: Hemoglobin is 7.8, white count 16.2 with a BUN of 18, creatinine 1.0. Cultures are so far negative. DIAGNOSTIC IMPRESSION AND PLAN: Patient with postoperative sepsis in a patient who did have elevated white count with ( ) status post repair. So far cultures remain negative. She is currently covered with broad-spectrum antibiotic in the form of Zosyn. Will continue to treat her ( ) slight jump in the white count. That will be monitor closely. Continue supportive care.
[2016-07-25] MEDS: HYDROmorphone 1 MG/ML 1 ML SYRINGE IVP PRN ×2 (00:04→05:23)
[2016-07-25] MEDS: PIPERACILLIN-TAZOBACTAM 3.375 GM in DEXTROSE/WATER 1 50ML.BAG IVPB SCH ×3 (00:15→17:11)
[2016-07-25 06:54] LABS: Anisocytosis Moderate; Basophils % (A) 0 %; CH 27.3; CHCM 31.9; Eosinophils # (A) 0.4 k/uL (0-0.7); Eosinophils % (A) 4 %; HDW 3.13; HGB 7.4 gm/dL (11.4-16.0); Hypochromasia Slight; Luc # (Auto) 0.38; Luc % (Auto) 4; Lymphocytes # (A) 1.1 k/uL (1.0-4.8); Lymphocytes % (A) 11 %; MCH 27.6 pg (25.0-35.0); MCHC 32.2 g/dL (31.0-37.0); MCV 85.6 fL (80.0-100.0); Mean Platelet Volume 6.5; Microcytosis Moderate; Monocytes # (A) 0.5 k/uL (0-1.0); Monocytes % (A) 5 %; Neutrophils # (A) 7.5 k/uL (1.3-7.7); Neutrophils % (A) 76 %; RBC 2.69 m/uL (3.80-5.40); RDW 22.7 % (11.5-15.5); WBC 9.9 k/uL (3.8-10.6); WBC (Perox) 10.49
[2016-07-25 07:05] LABS: INR 0.9 (<1.1); Prothrombin Time 9.2 sec (9.0-12.0)
[2016-07-25 07:24] LABS: ALT 25 U/L (9-52); AST 18 U/L (14-36); Alkaline Phosphatase 147 U/L (38-126); Anion Gap 10 mmol/L; Blood Urea Nitrogen 12 mg/dL (7-17); Calcium 7.5 mg/dL (8.4-10.2); Carbon Dioxide 18 mmol/L (22-30); Chloride 108 mmol/L (98-107); Glucose 87 mg/dL (74-99); Magnesium 2.2 mg/dL (1.6-2.3); Non-African American GFR(MDRD) >60 (>60 ml/min/1.73 sqM); Phosphorous 3.1 mg/dL (2.5-4.5); Potassium 3.7 mmol/L (3.5-5.1); Sodium 136 mmol/L (137-145); Total Bilirubin 0.3 mg/dL (0.2-1.3)
[2016-07-25] MEDS: SODIUM CHLORIDE 0.9% 1,000 ML IV SCH (08:49)
--- NOTE | 2016-07-25 09:40 | XR ---
EXAMINATION TYPE: XR chest 1V DATE OF EXAM: 07/25/2016 COMPARISON: NONE HISTORY: CHF TECHNIQUE: Single frontal view of the chest is obtained. FINDINGS: Heart size is at the upper limits of normal. There is right lower lobe infiltrate and smal l effusion. No overt failure or pneumothorax. IMPRESSION: Right lower lobe infiltrate and small effusion
--- NOTE | 2016-07-25 10:03 | P.PN ---
Progress Note - Text Patient seen and evaluated. She again this morning appears in stable condition and in no acute distress. She does report that she has minimal appetite and food is still difficult to eat. She is tolerating liquids well. She does have bowel sounds and she reports that she is passing a moderate amount of flatus. No bowel movement to this point. She is able to ambulate and she is producing large amounts of essentially clear yellow urine. Chest x-ray was done today as she said she had some left sided chest discomfort. However the chest x-ray showed possible right lower lobe infiltrate but nothing on the left. Her chest pain she reports as being completely gone at the time of my evaluation. Would definitely need to encourage use of Tri-flow she continues on antibiotic therapy however leukocytosis has improved to 9.9. It is however noted that her hemoglobin again has dropped slightly to 7.4. At this time I again have no source for her bleeding if she is actually having bleeding. She did not receive any blood transfusions and 7.4 hemoglobin would've been more I would've expected from the amount of blood loss that she had during the surgery but that was almost a week ago. Ultimately she may end up needing transfusion should this continue. With no active source for bleeding is difficult for me to determine where it might be coming from other studies may be required to further define this should the blood count continued to fall. Other than being weak and tired she reports no other complaints. Her pain is much better controlled. Peritoneal drain has minimal fluid in the her incision otherwise has been clean dry and intact. On physical exam: Vital signs are stable with hypertensive episodes but blood pressures are better than they have been. She has a low-grade hyperpyrexia of 99.4 basically unchanged over the last 24 hours. abdomen is soft but distended there is minimal tenderness in her incision is intact. Assessment postop day 6 from emergent section postop day 3 from bladder repair Plan we'll plan to continue conservative management for now. Overweight medicine and urologic recommendations from today. Again consideration may need to be made for blood products should hemoglobin continued to fall or should she become more symptomatic.
--- NOTE | 2016-07-25 11:19 | PN ---
Patient had a low grade fever last night and patient oxygen saturations are going down because of which I will stop the IV fluids and patient will be given MiraLAX as she did not move her bowels although patient does have good bowel sounds. I will also obtain a chest x-ray to make sure patient is not developing any pulmonary edema to IV fluids she received. IV fluids will be discontinued as patient is eating well at this point of time. Patient is hyperchloremic and because of hyperchloremia, patient appears to have metabolic acidosis. REVIEW OF SYSTEMS: CARDIOVASCULAR: No chest pain, no orthopnea, no PND, no palpitations. PULMONARY: Denied any shortness of breath. No cough or hemoptysis. GASTROINTESTINAL: Significant improvement in abdominal pain. NEUROLOGIC: No headaches, no weakness, no numbness. PHYSICAL EXAMINATION: The 24-hour T-max is 100.6, present temperature is 99.4. Pulse of 81, respiratory rate of 20, blood pressure is 154/78, saturating at 92% on room air. GENERAL: The patient is alert and oriented x3, not in any acute distress. Well developed, well nourished. HEENT: Pupils are round and equally reacting to light. EOMI. No scleral icterus. No conjunctival pallor. Normocephalic, atraumatic. No pharyngeal erythema. No thyromegaly. CARDIOVASCULAR: S1 and S2 present. No murmurs, rubs, or gallops. PULMONARY: Chest is clear to auscultation, no wheezing or crackles. ABDOMEN: Abdomen is still distended, but tympanic. Does have good bowel sounds. Very minimal tenderness was appreciated. Diffuse tenderness was appreciated. MUSCULOSKELETAL: No joint swelling or deformity. EXTREMITIES: No cyanosis, clubbing, or pedal edema. NEUROLOGICAL: Gross neurological examination did not reveal any focal deficits. SKIN: No rashes. LABORATORY DATA: CBC, CMP showed improvement in WBC count 9900 and metabolic acidosis due to hyperchloremia as mentioned above. ASSESSMENT AND PLAN: 1. Sepsis, probably intra-abdominal source post surgery, continue with Zosyn at this point of time. Patient has a low-grade fever. Infectious Disease is following the patient. 2. Acute renal failure secondary to ( ) and bladder laceration, which improved at this point of time. IV fluids will be discontinued. Patient's kidney function returned to normal. 3. Rule out pulmonary edema due to IV fluids. I will obtain a chest x-ray. 4. Abruptio placenta. Management as per OB services. 5. Hyponatremia due to syndrome of inappropriate antidiuretic hormone secretion from pain, which resolved. 6. Metabolic acidosis secondary to hyperchloremia expected to improve with discontinuation of IV fluids. 7. Hypertension. 8. Mild ileus, which appears to have improved. Patient is passing gas, did not move her bowels, but will give her MiraLAX on p.r.n. basis for constipation. We will follow the patient on an as-needed basis and patient will not need any more telemetry.
[2016-07-25] MEDS: oxyCODONE-APAP 7.5-325MG 1 EACH TAB PO PRN ×2 (14:32→22:14)
[2016-07-25] MEDS: POLYETHYLENE GLYCOL 3350 17 GM POWD.PACK PO SCH (15:01)
[2016-07-25] MEDS: IRON PS CMPLX/VIT B12/FA 1 EACH CAP PO SCH (17:10)
[2016-07-26] MEDS: PIPERACILLIN-TAZOBACTAM 3.375 GM in DEXTROSE/WATER 1 50ML.BAG IVPB SCH ×3 (01:35→10:38)
[2016-07-26] MEDS: oxyCODONE-APAP 7.5-325MG 1 EACH TAB PO PRN ×3 (04:40→19:56)
--- NOTE | 2016-07-26 08:31 | P.PN ---
Progress Note - Text This patient was seen 7. The dictated. She is feeling better. She is still having pain. She has not ambulated. Her vital signs are stable. She will ambulate and see how she does to determine whether she can be discharged home 07/26
--- NOTE | 2016-07-26 08:38 | P.PN ---
Subjective The patient is status post bladder repair from an injury sustained during an emergency for abruption of placenta. She is doing well from the repair. Her vital signs are stable. The SADAF drainage is minimal. The SADAF was removed today. He is still having some problems with bowel movements. She does not feel comfortable going home yet as she lives in [place]. I encouraged her to walk. When she can ambulate and care for herself with basic needs then she can be discharged home. will have a cystogram performed next week. Objective - Vital Signs Vital signs: Vital Signs Temp 98.6 F 07/25/16 21:00 Pulse 76 07/26/16 00:00 Resp 18 07/26/16 00:00 BP 180/101 07/25/16 21:00 Pulse Ox 98 07/25/16 21:00 Intake & Output 07/25/16 07/26/16 07/26/16 18:59 06:59 18:59 Intake Total 290 Output Total 1900 3003 Balance -1900 -2713 Weight 88 kg Intake: IV 50 Piperacillin-Tazobactam 3 50 .375 gm In Dextrose/Water 1 50ml.bag @ 12.5 mls/hr IVPB Q8HR [facility] Rx#: [id number] Oral 240 Output: Drainage 3 Abdomen 3 Urine 1900 3000 Other: Voiding Method Indwelling Catheter Indwelling Catheter - Labs CBC & Chem 7: 07/25/16 06:36 07/25/16 06:36 Labs: Microbiology - Last 24 Hours (Table) 07/21/16 23:25 Blood Culture - Preliminary Blood No Growth after 96 hours 07/22/16 16:22 Blood Culture - Preliminary Blood No Growth after 72 hours 07/22/16 15:55 Blood Culture - Preliminary Blood No Growth after 72 hours
[2016-07-26] MEDS: POLYETHYLENE GLYCOL 3350 17 GM POWD.PACK PO SCH (09:05)
[2016-07-26 10:43] VITALS: RESP 16
[2016-07-26] MEDS: AMOXIC-POT CLAV 875-125MG 1 EACH TAB PO SCH ×2 (13:19→21:12)
[2016-07-26] MEDS: amLODIPine 5 MG TAB PO SCH (13:19)
[2016-07-26] MEDS: IRON PS CMPLX/VIT B12/FA 1 EACH CAP PO SCH (13:19)
--- NOTE | 2016-07-26 21:31 | PN ---
HOSPITAL COURSE/SUBJECTIVE DATA: This is a 41-year-old female that has had a complicated hospitalization including stillborn thereafter having abruption placenta. Patient has had trauma to the bladder thereafter undergoing a bladder repair with Lomeli placement at this time. Patient has been maintained on IV Zosyn as patient has had fever of unknown origin suspecting an intra-abdominal etiology. Today patient was seen in cross coverage states that she has not had a bowel movement. States that her abdomen is tender. Denies having any headaches, blurry vision, chest pain, nausea. Patient is tolerating diet. Today, vitals include temperature 99.2, heart rate is 74, respiratory rate 16, blood pressure 175/87. Saturating 95% on room air. GENERAL APPEARANCE: Alert, oriented x3 in no distress. NECK: Supple. No JVD. LUNGS: Good air movement. Clear to auscultation. No rhonchi, wheezing or crackles. HEART: S1, S2 are regular rate and rhythm. No murmurs appreciated. ABDOMEN: Appropriately tender to palpation. Bowel sounds are appreciated. No organomegaly. Lomeli catheter in place. Lower extremities: Trace edema noted around the ankles. NEUROLOGIC EXAM: No focal motor or sensory deficits noted. Laboratory data include hemoglobin 7.4, hematocrit 23, white count of 9.9, platelets 314, sodium 136, potassium 3.7, chloride 108, bicarb 18, BUN 12, creatinine of 0.79. ASSESSMENT AND PLAN: 1. Suspected sepsis due to an intra-abdominal etiology likely after peritoneal contamination. 2. Acute renal failure, which is improved. 3. Hypertension that is, slightly accelerated. 4. Anemia with an acute blood loss as expected with a component of iron deficiency. 5. Abruptio placentae. 6. Hyponatremia which is resolved. 7. Nonanion gap metabolic acidosis. PLAN: I will start the patient on amlodipine 5 mg. I did discuss some concern for lower extremity edema a side effect with this medication. Patient's patient has had 3 to 4, blood pressure readings that are high. IV fluids are discontinued. Patient's IVs infiltrated and hence change antibiotics to Augmentin 875/125 to continue with intra-abdominal coverage. Will defer to Dr. Pedroza in regards to timing of discharging the patient. Continue with bowel regimen with MiraLax as well.
[2016-07-26] MEDS: SODIUM CHLORIDE 0.9% 1,000 ML IV SCH ×2 (22:23→22:24)
[2016-07-27] MEDS: oxyCODONE-APAP 7.5-325MG 1 EACH TAB PO PRN ×3 (01:06→15:17)
[2016-07-27 07:49] VITALS: BP 136/89; PULSE 78; TEMP 98.6
--- NOTE | 2016-07-27 08:03 | PN ---
DATE OF SERVICE: 07/26/2016 Reason for follow-up is secondary peritonitis ( ). INTERVAL HISTORY: The patient's overall fever pattern has improved. She is feeling better, breathing comfortably. Abdominal pain has improved. No nausea or vomiting. On examination, blood pressure is 153/91 with a pulse of 83. Temperature 99.1. She is 97% on room air. General description is an elderly female, lying in bed in no distress. RESPIRATORY SYSTEM: Unlabored breathing. Clear to auscultation anteriorly. HEART: S1, S2. Regular rate and rhythm. ABDOMEN: Soft, no tenderness. EXTREMITIES: No edema feet. LABS: Hemoglobin is 7.5, white count 9.9 with a BUN of 12, creatinine 0.79. Blood culture has been negative. DIAGNOSTIC IMPRESSION AND PLAN: Patient with abscess postop with ( ) status post repair. Overall the white count has normalized. Blood culture has been negative. Antibiotic switched to Augmentin. That will be continued watching the clinical course closely. Continue supportive care.
[2016-07-27] MEDS: POLYETHYLENE GLYCOL 3350 17 GM POWD.PACK PO SCH (08:38)
[2016-07-27] MEDS: amLODIPine 5 MG TAB PO SCH (08:38)
[2016-07-27] MEDS: AMOXIC-POT CLAV 875-125MG 1 EACH TAB PO SCH (08:38)
[2016-07-27 10:44] LABS: Anisocytosis Moderate; CH 27.9; CHCM 33.7; HCT 27.6 % (34.0-46.0); HDW 3.61; Hypochromasia Slight; Immature Gran Flag Slight; MCH 27.5 pg (25.0-35.0); MCHC 33.3 g/dL (31.0-37.0); MCV 82.6 fL (80.0-100.0); Microcytosis Moderate; Poikilocytosis Slight; RBC 3.34 m/uL (3.80-5.40); RDW 22.4 % (11.5-15.5); WBC 12.7 k/uL (3.8-10.6); WBC (Perox) 13.01
[2016-07-27 10:45] LABS: HGB 9.2 gm/dL (11.4-16.0)
--- NOTE | 2016-07-27 10:57 | P.PN ---
Progress Note - Text Mrs. Durham is feeling better today. She is tolerating diet, and ambulating. She is afebrile with stable vital signs. Her SADFA drain was removed yesterday. Her Lomeli catheter remains in place, draining clear yellow urine. The incision is clean and dry, without erythema. Her hemoglobin level has increased to 9.2. Her kaylyn will be removed, and Steri-Strips applied. Neurologically, she is stable for discharge. Arrangements will be made for her to undergo a cystogram on August 03, 2016. Assuming there is no extravasation of contrast, she will subsequently be seen in the office for catheter removal.
[2016-07-27 11:04] LABS: Add Differential Manual Differential
[2016-07-27 11:09] LABS: Manual Review Performed; Nucleated Red Blood Cells 0 /100 WBC (0-0); Rouleaux Present; Total Cells Counted 200; Toxic Granulation Present
[2016-07-27 11:10] LABS: Polychromasia Present
--- NOTE | 2016-07-27 12:10 | P.DS ---
Providers Date of admission: 07/19/16 18:49 Expected date of discharge: 07/27/16 Attending physician: Pradeep Pedroza Consults: 07/19/16 21:22 Consult Physician Routine Consulting Provider: Ayanna Gregg Consult Reason/Comments: icu management Do you want consulting provider notified?: Already Contacted Consult Physician Urgent Consulting Provider: Juanita Saha Consult Reason/Comments: medical management Do you want consulting provider notified?: Yes 07/21/16 15:06 Consult Physician Urgent Consulting Provider: Ruben Alvarez Consult Reason/Comments: bladder laceration, dysuria Do you want consulting provider notified?: Yes 07/22/16 02:31 Consult Physician Stat Consulting Provider: Ismael Lance Consult Reason/Comments: colonic ileus with intractable pain Do you want consulting provider notified?: Yes 07/22/16 10:37 Consult Physician Routine Consulting Provider: Debbie De Leon Consult Reason/Comments: sepsis Do you want consulting provider notified?: Yes Primary care physician: Stated None Hospital Course: Patient is seen and evaluated she is postop day 8 from a emergency due to an abruption and postop day 5 from a laceration of bladder repair. She is ambulating well today. She is voicing no complaints. Her abdomen is soft she has bowel sounds she is passing flatus. Her T-max of last 24 hours is 99. A repeat hemoglobin this morning was 9.2. She is stable from a surgical standpoint for discharge. She has been followed very closely by medicine and will need antihypertensives at home. We'll verify that there providing the prescription. She'll need to follow up with her normal internal medicine doctor in the future for care with regard to this. She is seeing Dr. Landaverde and myself on Wednesday the for evaluation of her incision and removal of her Lomeli catheter. All other questions are answered for her at this time. Vital signs are currently stable and afebrile. Heart regular, lungs clear, extremities without pain. In her incision is clean dry and intact. We'll plan removal kaylyn prior to her discharge and prescriptions for pain medication and hypertension medication provided. Please see other dictations with regard to this patient and her care both in the hospital and moving forward Patient Condition at Discharge: Good Plan - Discharge Summary New Discharge Prescriptions: New Hydrocodone/Acetaminophen [[place] 5-325] 1 - 2 each PO Q4HR PRN #30 tab PRN Reason: Pain No Action Labetalol [Trandate] 600 mg PO Q8H Ferrous Sulfate [Feosol] 325 mg PO DAILY Pnv,Calcium 72/Iron/Folic Acid [ Plus Tablet] 1 tab PO DAILY Discharge Medication List Ferrous Sulfate [Feosol] 325 mg PO DAILY 07/19/16 [History] Labetalol [Trandate] 600 mg PO Q8H 07/19/16 [History] Pnv,Calcium 72/Iron/Folic Acid [ Plus Tablet] 1 tab PO DAILY 07/19/16 [ History] Hydrocodone/Acetaminophen [[place] 5-325] 1 - 2 each PO Q4HR PRN #30 tab 07/27/16 [Rx] Follow up Appointment(s)/Referral(s): Ruben Alvarez MD [STAFF PHYSICIAN] - 08/03/16 Pradeep Pedroza DO [Doctor of Osteopathic Medicine] - 08/03/16 9:00 am Activity/Diet/Wound Care/Special Instructions: Discharge home with Lomeli catheter. No lifting, driving, or strenuous activity. OK to shower. Diet as tolerated.
--- NOTE | 2016-07-27 13:23 | PN ---
DATE OF SERVICE: 07/27/2016 Reason for followup is secondary peritonitis from perforated bladder. INTERVAL HISTORY: The patient is afebrile. Overall the patient is feeling better. Breathing comfortably. No significant chest pain, shortness of breath or cough. Slight pain in the right lower abdominal area, though no worsening. Did not have any bowel movement. No nausea, no vomiting. On examination, blood pressure is 136/89 with a pulse of 78, temperature 98.6. She is 99% on room air. General description is a middle-age female lying in bed in no distress. RESPIRATORY SYSTEM: Unlabored breathing. Clear to auscultation anteriorly. HEART: S1, S2, regular rate and rhythm. ABDOMEN: Soft, no tenderness. LABS: Hemoglobin 9.2 with white count 12.7 with BUN of 12 and creatinine 0.79. Cultures so far negative. DIAGNOSTIC IMPRESSION AND PLAN: Patient with fever and elevated white count, post secondary to an injury to the bladder, status post repair, so far culture remain to be negative. Currently on oral Augmentin. She did have slight ( ) in the white count and will be monitored very closely. If any new fever or further ( ) in the white count, ( ) antibiotic for that.
[2016-07-27] MEDS: IRON PS CMPLX/VIT B12/FA 1 EACH CAP PO SCH (15:17)
--- NOTE | 2016-07-27 15:26 | CDI ---
In responding to this query, please exercise your independent professional judgment. The [facility] Coding Staff and Clinical Documentation Specialists appreciate your assistance in clarifying documentation, maintaining compliance with coding guidelines, accurately documenting patients condition and capturing severity of illness. The fact that a question is asked does not imply that any particular answer is desired or expected. Communication forms are a method of clarifying documentation and are not made part of the Legal Health Record. Thank you in advance for your clarification. Last Revision, Mar 2016 El [address] [facility] [place] [address] Documentation Clarification Form Date: 07/24/2016 1:24:00 PM From: Jordana Armas Admit Date: 07/19/2016 6:49:00 PM Patient Name: Kaylyn Durham Visit Number: [id number] Discharge Date: Dr. Pradeep Pedroza Laceration of bladder as postoperative complication is documented in the consult on 07/21/16 with additional progress notes indicating a bladder laceration. Patients Admitting Diagnosis: Intrauterine at 30 weeks with placenta abruption Post-Operative Diagnosis: Same Procedure performed: Repeat low transverse section History/Risk Factors: Hypertension, Anemia, Iron deficiency anemia, previous section x3, Clinical Indicators: Patient was taken to OR in critical condition having large quantity of blood coming from her vagina. Treatment: Emergency section IV Fluids In order to accurately reflect this patients severity of illness, please clarify if the post-operative bladder laceration is: An unexpected post-procedural or post-surgical condition, related to surgical care, Or other condition (specify) An expected post-procedural or post-surgical condition Integral to the procedure Inherent to the procedure Other, please specify Unable to determine Please document as an addendum to your discharge summary in order to capture severity of illness and risk of mortality. Include clinical findings that support your diagnosis. FYI: Press F11 to launch patient chart Place X here if this finding has no clinical significance, is not applicable or if you are not able to provide any additional documentation. SANCHO
--- NOTE | 2016-07-27 15:34 | CDI ---
In responding to this query, please exercise your independent professional judgment. The [facility] Coding Staff and Clinical Documentation Specialists appreciate your assistance in clarifying documentation, maintaining compliance with coding guidelines, accurately documenting patients condition and capturing severity of illness. The fact that a question is asked does not imply that any particular answer is desired or expected. Communication forms are a method of clarifying documentation and are not made part of the Legal Health Record. Thank you in advance for your clarification. Last Revision, Mar 2016 El [address] [facility] [place] [address] Documentation Clarification Form Date: 07/24/2016 2:06:00 PM From: Jordana Armas Admit Date: 07/19/2016 6:49:00 PM Patient Name: Kaylyn Durham Visit Number: [id number] Discharge Date: Dr. Pradeep Pedroza Possible postoperative ileus is documented in the progress notes on 07/21/16 and in your progress notes 07/25/16. Clinical Indicators: Postop day 4 from a section postop day 1 from bladder repair. She has a few bowel sounds, not passing flatus. CT abdomen/pelvis 07/22/16: moderate amount of free fluid and mild amount of free gas. Probable postoperative colonic ileus. Treatment: NPO IV Fluids In order to accurately reflect this patients severity of illness, please clarify if the ileus: A complication of the procedure Integral to the procedure Inherent to the procedure Not clinically significant An unexpected post-procedural or post-surgical condition, related to (specify ) Other, please specify Unable to determine Please document in your progress notes and discharge summary in order to capture severity of illness and risk of mortality. Include clinical findings that support your diagnosis. FYI: Press F11 to launch patient chart Place X here if this finding has no clinical significance, is not applicable or if you are not able to provide any additional documentation. SANCHO
--- NOTE | 2016-07-27 15:36 | P.PN ---
Subjective HOSPITAL COURSE : This is a 41-year-old female that has had a complicated hospitalization including stillborn thereafter having abruption placenta. Patient has had trauma to the bladder thereafter undergoing a bladder repair with Lomeli placement at this time. Patient has been maintained on IV Zosyn as patient has had fever of unknown origin suspecting an intra-abdominal etiology. Today patient was seen in cross coverage states that she has not had a bowel movement. States that her abdomen is tender, however improved . Denies having any headaches, blurry vision, chest pain, nausea. Patient is tolerating diet. GENERAL APPEARANCE: Alert, oriented x3 in no distress. NECK: Supple. No JVD. LUNGS: Good air movement. Clear to auscultation. No rhonchi, wheezing or crackles. HEART: S1, S2 are regular rate and rhythm. No murmurs appreciated. ABDOMEN: Appropriately tender to palpation. Bowel sounds are appreciated. No organomegaly. Lomeli catheter in place. Lower extremities: Trace edema noted around the ankles. NEUROLOGIC EXAM: No focal motor or sensory deficits noted. ASSESSMENT AND PLAN: 1. Suspected sepsis due to an intra-abdominal etiology likely after peritoneal contamination. 2. Acute renal failure, which is improved. 3. Hypertension that is, slightly accelerated. 4. Anemia with an acute blood loss as expected with a component of iron deficiency. 5. Abruptio placentae. 6. Hyponatremia which is resolved. 7. Nonanion gap metabolic acidosis. labs are improved bp stable poss discharge today continue amlodipine 5mg discussed she needs follow up with PCP and home bp monitering as well Objective - Vital Signs Vital signs: Vital Signs Temp 98.6 F 07/27/16 07:00 Pulse 78 07/27/16 08:00 Resp 16 07/27/16 08:00 BP 136/89 07/27/16 07:00 Pulse Ox 99 07/27/16 07:00 Intake & Output 07/26/16 07/27/16 07/27/16 18:59 06:59 18:59 Intake Total 1125 520 Output Total 2850 3200 5850 Balance -3274 -5423 -5827 Weight 76 kg 76 kg Intake: Oral 1125 520 Output: Urine 2850 3200 5850 Uretheral (Lomeli) 3200 1500 Other: Voiding Method Indwelling Catheter Indwelling Catheter Indwelling Catheter # Voids 3 - Labs CBC & Chem 7: 07/27/16 08:51 06/17/17 06:36 Labs: Abnormal Lab Results - Last 24 Hours (Table) 07/27/16 Range/Units 08:51 WBC 12.7 H (3.8-10.6) k/uL RBC 3.34 L (3.80-5.40) m/uL Hgb 9.2 L D (11.4-16.0) gm/dL Hct 27.6 L (34.0-46.0) % RDW 22.4 H (11.5-15.5) % Neutrophils # (Manual) 8.8 H (1.3-7.7) k/uL Microbiology - Last 24 Hours (Table) 07/21/16 23:25 Blood Culture - Preliminary Blood No Growth after 120 hours 07/22/16 16:22 Blood Culture - Preliminary Blood No Growth after 96 hours 07/22/16 15:55 Blood Culture - Preliminary Blood No Growth after 96 hours
--- NOTE | 2016-07-30 12:48 | DS ---
DATE OF ADMISSION: 07/19/2016 DATE OF DISCHARGE: 07/27/2016 DISCHARGE ADDENDUM: Please also add: Iron deficiency anemia to the final diagnosis.
== END 2016-07-27 18:35 | disposition home or self-care (01) | DRG 765 ==
LOC: 6ICU 18:49 → 4FBP 07-20 15:10 → 4MS4W 07-21 12:32 → 6SEL 07-22 04:19 → 5ONC 07-24 17:29
PROVIDERS: ADMIT Obstetrics & Gynecology; ATTEND Obstetrics & Gynecology
PROC: 10D00Z1 Extraction of Products of Conception, Low, Open Approach (ICD-10-PCS; principal; 2016-07-19 18:00)
PROC: 0TQB0ZZ Repair Bladder, Open Approach (ICD-10-PCS; 2016-07-22)
DX: O45.93 Premature separation of placenta, unspecified, third trimester (principal); O85 Puerperal sepsis; O75.1 Shock during or following labor and delivery; O90.4 Postpartum acute kidney failure; E22.2 Syndrome of inappropriate secretion of antidiuretic hormone; E87.2 Acidosis; D62 Acute posthemorrhagic anemia; O36.4XX0 Maternal care for intrauterine death, not applicable or unspecified; O71.5 Other obstetric injury to pelvic organs; E87.8 Other disorders of electrolyte and fluid balance, not elsewhere classified; Z37.1 Single stillbirth; O34.211 Maternal care for low transverse scar from previous cesarean delivery; Z3A.30 30 weeks gestation of pregnancy; O69.81X0 Labor and delivery complicated by cord around neck, without compression, not applicable or unspecified; E87.5 Hyperkalemia; E88.09 Other disorders of plasma-protein metabolism, not elsewhere classified; O99.02 Anemia complicating childbirth; O99.284 Endocrine, nutritional and metabolic diseases complicating childbirth; O99.89 Other specified diseases and conditions complicating pregnancy, childbirth and the puerperium; Z87.440 Personal history of urinary (tract) infections; Z87.891 Personal history of nicotine dependence; O16.5 Unspecified maternal hypertension, complicating the puerperium; O75.4 Other complications of obstetric surgery and procedures
CPT/HCPCS: 36600; 51610; 71010; 74020; 74176; 74450; 76770; 80048; 80053; 81001; 82570; 82805; 83540; 83550; 83605; 83735; 83930; 84100; 84300; 84439; 84443; 85025; 85027; 85379; 85384; 85610; 85730; 86850; 86900; 86901; 86920; 87040; 87086; 87205; 88307

== ENCOUNTER → 2016-08-03 | Outpatient (CLI) | payer OTHER ==
--- NOTE | 2016-08-03 10:55 | FL ---
EXAMINATION TYPE: FL cystogram DATE OF EXAM: 08/03/2016 COMPARISON: 07/21/2016 HISTORY: Bladder laceration follow-up. TECHNIQUE: Fluoroscopy. FINDINGS: 300 cc of Cystografin was instilled in a retrograde manner via the patient's indwelling Fol ey balloon catheter. There is irregularity of the left lateral urinary bladder wall however there is no evidence for leak at this time. No persistent filling defects are identified. Post drainage radiograph reveals no abnormal collection. IMPRESSION: 1.There is irregularity of the left lateral urinary bladder wall however there is no evidence for joshua k at this time.
== END | disposition home or self-care (01) ==
LOC: RADFLWHC 09:52
PROVIDERS: ATTEND Urology
DX: R93.41 Abnormal radiologic findings on diagnostic imaging of renal pelvis, ureter, or bladder (principal)
CPT/HCPCS: 74430; Q9962

== ENCOUNTER → 2016-08-13 | Outpatient (CLI) | payer OTHER ==
--- NOTE | 2016-08-13 12:54 | FL ---
EXAMINATION TYPE: FL voiding cystourethrogram DATE OF EXAM: 08/13/2016 COMPARISON: 08/03/2016 HISTORY: Bladder laceration follow-up. TECHNIQUE: Fluoroscopy. FINDINGS: 300 cc of Cystografin was instilled in a retrograde manner via the patient's indwelling Fol ey balloon catheter. There is interval improvement in irregularity of the left lateral urinary bladde r wall. There Is no evidence for leak at this time. No persistent filling defects are identified. Pos t drainage radiograph reveals no abnormal collection. IMPRESSION: 1. No evidence for leak from the urinary bladder. Improved irregularity of the left lateral urinary b ladder wall.
== END | disposition home or self-care (01) ==
LOC: RADFLWHC 10:42
PROVIDERS: ATTEND Urology
DX: N99.89 Other postprocedural complications and disorders of genitourinary system (principal)
CPT/HCPCS: 74455; Q9962